=== PATIENT | female | born 1975 | race Caucasian/White ===

== ENCOUNTER 2016-12-04 14:52 | Inpatient (IN) | payer OTHER ==
[~2016-12-04] VITALS: Ht 167.6 cm; Wt 54.4 kg
[2016-12-04] MEDS ORDERED: MAGNESIUM HYDROXIDE 30 ML LIQUID UDC PO PRN (23:30)
[2016-12-04] MEDS ORDERED: THIAMINE HCL 200 MG/2 ML VIAL IM ONE (23:30)
[2016-12-04] MEDS ORDERED: MIRALAX 17 GM POWD.PACK PO PRN (23:30)
[2016-12-04] MEDS ORDERED: LORAZEPAM 2 MG/1 ML VIAL IM PRN (23:30)
[2016-12-04] MEDS ORDERED: ACETAMINOPHEN 325 MG TABLET PO PRN (23:30)
[2016-12-04] MEDS ORDERED: MAG HYDROX/AL HYDROX/SIMETH 30 ML LIQUID UDC PO PRN (23:30)
[2016-12-04] MEDS ORDERED: DICYCLOMINE HCL 20 MG TABLET PO PRN (23:30)
[2016-12-04] MEDS ORDERED: LOPERAMIDE HCL 2 MG CAPSULE PO PRN ×2 (23:30)
[2016-12-04] MEDS ORDERED: LORAZEPAM 1 MG TABLET PO PRN ×2 (23:30)
[2016-12-05] MEDS ORDERED: IV NS 1000 ML 1,000 ML IV PRN
[2016-12-05] MEDS ORDERED: ONDANSETRON 4 MG/2 ML VIAL IV PRN
[2016-12-05 00:18] VITALS: BP 112/79
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
[2016-12-05] MEDS: IBUPROFEN 400 MG TABLET PO PRN (00:43)
--- NOTE | 2016-12-05 00:43 | NUR ---
VITAMIN B1 INJ/PRN ATIVAN/MOTRIN ADMINISTRATION PATIENT GIVEN B1 INJ ORDERED. PATIENT ANXIOUS, AGITATED, IRRITABLE, TREMULOUS AND SWEATING. CIWA 5 . PRN ATIVAN GIVEN AND MOTRIN GIVEN FOR BACK PAIN 04/18. WILL MONITOR FOR EFFECTIVENESS
[2016-12-05] MEDS ORDERED: LORAZEPAM 1 MG TABLET ONE (00:46)
[2016-12-05 00:51] LABS: *URINE HCG, QUAL NEGATIVE (NEGATIVE)
[2016-12-05] MEDS ORDERED: IBUPROFEN 400 MG TABLET ONE (00:51)
[2016-12-05 00:54] LABS: *AMPHETAMINE, URINE NEGATIVE (NEGATIVE); *BARBITURATE, URINE NEGATIVE (NEGATIVE); *CANNABINOID, URINE NEGATIVE (NEGATIVE); *COCCAINE, URINE NEGATIVE (NEGATIVE); *OPIATE, URINE NEGATIVE (NEGATIVE); *PHENCYCLIDINE SCREEN,URINE NEGATIVE (NEGATIVE)
[2016-12-05] MEDS ORDERED: diphenhydrAMINE 50 MG CAPSULE ONE (01:29)
--- NOTE | 2016-12-05 01:43 | NUR ---
PRN MEDS RE-ASSESSMENT PATIENT'S STATES LESS ANXIOUS, ATIVAN HELPFUL . CIWA 6. PATIENT CALM. MOTRIN HELPFUL AND EFFECTIVE FOR HER BACK PAIN. WILL CONTINUE TO MONITOR.
[2016-12-05] MEDS: diphenhydrAMINE 50 MG CAPSULE PO PRN ×2 (02:03→21:18)
--- NOTE | 2016-12-05 02:03 | NUR ---
PRN BENADRYL ADMINISTRATION PATIENT FOR SLEEP AID. PRN BENADRYL GIVEN. WILL MONITOR FOR EFFECTIVENESS
[2016-12-05 02:24] LABS: ALBUMIN 4.6 g/dL (3.4-5.0); BILIRUBIN,TOTAL 0.4 mg/dL (0.2-1.0); CALCIUM 8.6 mg/dL (8.5-10.1); CREATININE 0.8 mg/dL (0.6-1.3); TOTAL PROTEIN, SERUM 8.1 g/dL (6.4-8.2)
[2016-12-05 02:34] LABS: THYROID STIMULATING HORMONE 2.665 mIU/mL (0.358-3.740)
[2016-12-05 02:37] LABS: HIV-1 p24 ANTIGEN NON REACTIVE (NONREACTIVE); HIV-1/2 ANTIBODY NON REACTIVE (NONREACTIVE)
[2016-12-05 02:43] LABS: HEMOGLOBIN 15.6 g/dL (12.0-16.0); MEAN CORPUSCULAR HEMOGLOBIN 32.2 uug (27.0-31.0); WHITE BLOOD COUNT (AUTO) 4.3 K/uL (4.0-11.2)
[2016-12-05 02:45] LABS: BASOPHILS % (AUTO) 0.4 % (0.0-2.0); EOSINOPHILS # (AUTO) 0.1 K/uL (0.0-0.7); EOSINOPHILS % (AUTO) 1.9 % (0.0-7.0); HEMATOCRIT 46.4 % (37.0-47.0); LYMPHOCYTES # (AUTO) 1.6 K/uL (0.8-4.8); LYMPHOCYTES % (AUTO) 38.1 % (20.5-51.5); MEAN CORPUSCULAR HGB CONC 34 g/dL (32.0-37.0); MONOCYTES # (AUTO) 0.2 K/uL (0.1-1.30); MONOCYTES % (AUTO) 5.5 % (0.0-11.0); NEUTROPHILS # (AUTO) 2.4 K/uL (1.8-8.9); NEUTROPHILS % (AUTO) 54.1 % (38.5-71.5); PLATELET COUNT (AUTO) 181 K/uL (150-450); RED BLOOD CELL COUNT(AUTO) 4.83 MIL/uL (4.20-5.40)
--- NOTE | 2016-12-05 03:30 | NUR ---
PRElla SIU RE-ASSESSMENT PATIENT IN BED WITH EYES CLOSED. RESPIRATION EVEN AND UNLABORED. NO S/S OF DISTRESS. SAFETY MEASURES IN PLACE. CALL LIGHT IN REACH. WILL CONTINUE TO MONITOR.
[2016-12-05 04:00] VITALS: BP 97/66
--- NOTE | 2016-12-05 07:20 | NUR ---
Start of Shift Report from night nurse: pt is 41 y.o female new admission last night here for Etoh r/t wine and beers; PRN Ativan 2mg given last night with first CIWA 15 with PRN Motrin and Benadryl, 5 day Ativan taper ordered to start today during my shift. Pt HHx: or ER visit last night with severe intoxication so MRSA done last night, no seizures, multiple relapses. Pt is a full code, allergic to peanut and PCN, Vegan/regular diet, fall and seizure precautions orded. V/S stable. Skin is intact. Endorse elevated liver panel regimen with Dr. Reza aware. Skin is intact. Last CIWA 15. Pt is asleep in room. WIll cont. to monitor the pt.
--- NOTE | 2016-12-05 07:25 | NUR ---
END OF SHIFT NOTE PATIENT IS A 41 YEAR OLD FEMALE WHO PRESENTS TO [facility] FOR SUPERVISED WITHDRAWAL FROM ETOH DEPENDENCE.BODY CHECK DONE . SKIN INTACT. LUNGS CLEAR AND BOWEL SOUNDS ACTIVE ON ALL QUADRANT. RESPIRATION EVEN AND UNLABORED . ABDOMEN SOFT AND NON-DISTENDED . PATIENT ALLERGIC TO PENICILLIN AND PEANUT. PATIENT REQUESTED TO BE FULL CODE AND ON VEGAN DIET. PATIENT DENIES PAST MEDICAL HISTORY. NO SEIZURE HISTORY. PATIENT'S DRUG OF CHOICE ARE FF:1. ETOH (BEER AND WHITE WINE) -STARTED DRINKING SINCE 11 YEARS OLD. FOR A WEEK, PATIENT DRINKS 10-12 GLASSES OF WHITE WINE BEGINNING OF THE WEEK THEN 10 BOTTLES OF BEER FOR THE LAST 4 DAYS . LAST DRINK WAS 6 BEERS ON 12/04/16 AT 4 PM. PATIENT WAS PLACED ON 5 DAYS ATIVAN TAPER TO START TODAY. PATIENT DENIES SI/HI. PATIENT PATIENT WAS PLACED ON FALL/SEIZURE PRECAUTION. PATIENT WAS GIVEN ATIVAN PRN FOR CIWA 15 DURING ADMISSION, B1 INJECTION ON LEFT DELTOID, MOTRIN FOR BACK PAIN AND BENADRYL FOR SLEEP. LAST CIWA 2. SAFETY MEASURES IN PLACE. CALL LIGHT IN REACH. WILL CONTINUE TO MONITOR. PATIENT SLEPT 3 HOURS. FLUID INTAKE OF 500 ML. VOIDED X 1 AND NO BM.
[2016-12-05 08:00] VITALS: BP 101/65
[2016-12-05] MEDS ORDERED: PANTOPRAZOLE SODIUM 40 MG VIAL IV SCH (09:00)
[2016-12-05] MEDS ORDERED: TUBERCULIN,PURIF.PROT.DERIV. 5 TU/0.1 ML TEST ID ONE (09:00)
[2016-12-05] MEDS: ONDANSETRON ODT 4 MG TAB.RAPDIS SL PRN (09:15)
[2016-12-05] MEDS: LORAZEPAM 1 MG TABLET PO SCH ×4 (09:15→21:18)
[2016-12-05] MEDS: FOLIC ACID 1 MG TABLET PO SCH (09:23)
[2016-12-05] MEDS: MULTIVITAMINS,THERAPEUTIC TABLET PO SCH (09:23)
[2016-12-05] MEDS: THIAMINE HCL 100 MG TABLET PO SCH (09:23)
--- NOTE | 2016-12-05 09:30 | NUR ---
PRN Medication Administration Pt is in room c/o intermittent nausea; PRN Zofran 4mg SL given. Will reassess in 1H.
--- NOTE | 2016-12-05 10:30 | NUR ---
Reassessment Pt denies nausea before going to group and denies nausea; Zofran is effective. Will cont. to monitor the pt.
[2016-12-05 12:00] VITALS: BP 133/55
[2016-12-05] MEDS: PANTOPRAZOLE SODIUM 40 MG TABLET.DR PO SCH (12:06)
[2016-12-05] MEDS: PROMETHAZINE HCL 25 MG/1 ML VIAL IM PRN ×2 (12:12→17:02)
--- NOTE | 2016-12-05 12:30 | NUR ---
PRN Medication Administration Pt c/o recurrent nausea; PRN Promethazine 25mg IM given as ordered. Will reassess in 1H.
--- NOTE | 2016-12-05 13:30 | NUR ---
Reassessment Pt denies nausea; Promethazine is effective. Will cont. to monitor the pt.
[2016-12-05 16:00] VITALS: BP 117/85
--- NOTE | 2016-12-05 17:05 | NUR ---
PRN Medication Administration Pt c/o intermittent nausea; PRN Promethazine 25mg IM given as ordered. Will reassess in 1H.
--- NOTE | 2016-12-05 17:30 | NUR ---
Reassessment Pt denies Nausea before going to dinner; promethazine is effective. Will cont. to monitor the pt.
--- NOTE | 2016-12-05 19:35 | NUR ---
End of Shift Report to night nurse with update: pt is 41 y.o female new admission last night here for Etoh r/t wine and beers; PRN Ativan 2mg given last night with first CIWA 15 with PRN Motrin and Benadryl, 5 day Ativan taper ordered to start today during my shift. Pt HHx: or ER visit last night with severe intoxication so MRSA done last night, no seizures, multiple relapses. Pt is a full code, allergic to peanut and PCN, Vegan/regular diet, fall and seizure precautions ordered. V/S stable. Skin is intact. #22g SL in Left FA with scheduled order for NS at 125 cc/H with only 200cc given since pt is out to group and activities so endorsed to night nurse. Skin is intact. Pt c/o intermittent nausea with PRN Zofran given once and Promethazine IM given twice and is effective. Last CIWA 10.
[2016-12-05 20:00] VITALS: BP 116/85
--- NOTE | 2016-12-05 20:00 | NUR ---
START OF SHIFT NOTE PATIENT IS A 41 YEAR OLD FEMALE, ADMITTED FOR ETOH DEPENDENCE. PATIENT IS FULL CODE , VEGAN / REGULAR DIET AND ALLERGIC TO PENICILLIN AND PEANUT.PATIENT IS ON 1ST DAY OF HER 5 DAY ATIVAN TAPER. PATIENT WAS GIVEN PHENERGAN IM X 2 AND ZOFRAN SL FOR INTERMITTENT NAUSEA. LAST CIWA 10. PATIENT IS ON IV SODIUM CHLORIDE 0.9 % AT 125 MLS/HR ON LEFT FOREARM #22 G. NO INFILTRATE. SKIN INTACT. PATIENT REPORTS ANXIETY, SWEATING , TREMORS, NO N/V , PATIENT ATTENDED GROUPS. SHE STATES HER APPETITE IS GETTING BACK NOW. ENCOURAGE FLUIDS. ON FALL/SEIZURE PRECAUTION . SAFETY MEASURES IN PLACE. CALL LIGHT IN REACH. WILL CONTINUE TO MONITOR.
--- NOTE | 2016-12-05 21:18 | NUR ---
PRN BENADRYL ADMINISTRATION PATIENT REQUESTS FOR SLEEP AID. PRN BENADRYL GIVEN . WILL MONITOR FOR EFFECTIVENESS.
[2016-12-06] VITALS: BP 106/76
--- NOTE | 2016-12-06 | NUR ---
PRN BENADRYL RE-ASSESSMENT PATIENT STATES SHE FELL ASLEEP FOR FOR HOURS ONLY AND STILL UNABLE TO STAY ASLEEP. BENADRYL MILDLY EFFECTIVE
[2016-12-06] MEDS: HYDROXYZINE PAMOATE 25 MG CAPSULE PO PRN ×2 (00:07→23:44)
--- NOTE | 2016-12-06 00:07 | NUR ---
PRN VISTARIL/BACLOFEN ADMINISTRATION PATIENTS C/O ANXIETY AND BACK PAIN 04/18. PRN VISTARIL AND BACLOFEN GIVEN. WILL MONITOR FOR EFFECTIVENESS
[2016-12-06] MEDS: BACLOFEN 20 MG TABLET PO PRN ×2 (00:08→17:15)
--- NOTE | 2016-12-06 01:07 | NUR ---
PRN VISTARIL/BACLOFEN RE-ASSESSMENT PATIENT IN BED WITH EYES CLOSED. COMFORTABLE AND NO FACIAL GRIMACING NOTED. WILL CONTINUE TO MONITOR.
[2016-12-06 04:00] VITALS: BP 99/60
[2016-12-06] MEDS: PANTOPRAZOLE SODIUM 40 MG TABLET.DR PO SCH (07:01)
--- NOTE | 2016-12-06 07:35 | NUR ---
END OF SHIFT NOTE PATIENT IS A 41 YEAR OLD FEMALE, ADMITTED FOR ETOH DEPENDENCE. PATIENT IS FULL CODE , VEGAN DIET AND ALLERGIC TO PENICILLIN AND PEANUT. PATIENT DRINKS FOR A WEEK 10-12 GLASSES OF WHITE WINE AND 10 BOTTLES OF BEER . PATIENT IS ON 1ST DAY OF HER 5 DAY ATIVAN TAPER, TOLERATED. NO ADVERSE REACTION . PATIENT WAS ON IV SODIUM CHLORIDE 0.9 % AT 125 MLS/HR ON LEFT FOREARM #22 G, COMPLETED AND DISCONTINUE. HEP LOCK IN PLACE. NO INFILTRATE. SKIN INTACT. PATIENT REPORTS ANXIETY, SWEATING , TREMORS, NO /V , PATIENT ATTENDED GROUPS. SHE STATES HER APPETITE IS GETTING BACK NOW. ENCOURAGE FLUIDS. PATIENT WAS GIVE PRN BENADRYL FOR SLEEP , VISTARIL AND BACLOFEN DURING SHIFT . PATIENT COMPLIANT WITH MEDICATION AND TREATMENT PLAN. ON FALL/SEIZURE PRECAUTION . WILL CONTINUE TO MONITOR. SLEPT 8 HOURS. FLUID INTAKE 1,500 ML. VOIDED X 1. NO BM. LAST CIWA 1.
--- NOTE | 2016-12-06 07:36 | NUR ---
Start of Shift Notes: Received patient in her room. Alert, awake and oriented x 4. Verbally responsive. Able to make needs known. Respirations even and unlabored. No SOB noted. Skin warm and dry to touch. Abdomen soft and non-distended with (+) BS in all 4 quadrants. No complains of N/V/D or constipation noted. No complains of abdominal discomfort noted. Bladder non-distended. No complains of dysuria noted. Ambulatory ad allan with steady gait. Patient is a 41 year old male admitted for ETOH dependence who was placed on a 5-day Ativan taper as ordered. No adverse reactions noted. Denies any past medical hx. On fall and seizure precautions. Allergic to PCN and peanut. FULL CODE. Regular diet. Educated patient on her current plan of care for the day and her medication regimen. Encouraged oral fluid intake and encouraged group participation to learn new skills to prevent relapse. Will continue to monitor closely.
[2016-12-06 08:00] VITALS: BP 111/78
[2016-12-06] MEDS: THIAMINE HCL 100 MG TABLET PO SCH (08:08)
[2016-12-06] MEDS: FOLIC ACID 1 MG TABLET PO SCH (08:08)
[2016-12-06] MEDS: MULTIVITAMINS,THERAPEUTIC TABLET PO SCH (08:08)
[2016-12-06] MEDS: LORAZEPAM 1 MG TABLET PO SCH ×3 (08:09→21:20)
[2016-12-06] MEDS ORDERED: SUMATRIPTAN SUCCINATE 50 MG TABLET PO PRN (10:30)
[2016-12-06] MEDS: ASPIRIN/ACETAMINOPHEN/CAFFEINE TABLET PO PRN ×2 (10:40→21:19)
--- NOTE | 2016-12-06 10:41 | NUR ---
Excedrin ES 1 tab PO given: Patient noted with complain of 5/10 migraine headache. Non-pharmacological interventions provided but ineffective. Medicated patient with Excedrin ES 1 tab as ordered. Will monitor for effectiveness.
--- NOTE | 2016-12-06 11:40 | NUR ---
Re-assessment: Per patient, PRN Excedrin was effective in relieving headache.
[2016-12-06 12:00] VITALS: BP 113/83
--- NOTE | 2016-12-06 13:00 | NUR ---
IV access site DC'd: Obtained order from MD to D/C IV. IV site to left forearm discontinued. Immediately applied pressure to site x 2 minutes. No bleeding noted. No s.s of infiltration noted.
[2016-12-06] MEDS: GABAPENTIN 300 MG CAPSULE PO SCH ×2 (14:30→21:20)
[2016-12-06] MEDS ORDERED: BACLOFEN 10 MG TABLET PO SCH (15:00)
[2016-12-06 16:00] VITALS: BP 124/88
[2016-12-06] MEDS: ONDANSETRON ODT 4 MG TAB.RAPDIS SL PRN (17:15)
--- NOTE | 2016-12-06 17:16 | NUR ---
Baclofen 20 mg PO and Zofran 4 mg ODT given: Patient complained of 5/10 back pain related to muscle spasms. Also noted with complains of nausea. Medicated patient with Baclofen 20 mg PO and Zofran 4 mg ODT as ordered. Will monitor for effectiveness.
--- NOTE | 2016-12-06 18:16 | NUR ---
Re-assessment: Per patient, PRN Baclofen and Zofran were effective in reducing patient's muscle pains and nausea. Will continue to monitor closely.
--- NOTE | 2016-12-06 18:35 | NUR ---
End of Shift Notes: Patient is a 41 year old male admitted on 12/04/2016 for ETOH dependence who was placed on a 5-day Ativan taper as ordered. No adverse reactions noted. Denies any past medical hx. FULL CODE. Vegan diet. Allergic to PRN and peanut. Prior to admission, patient was using 10 to 12 glasses of white wine and 10 bottles of beer daily. VS monitored q 4 hours. No significant abnormalities noted. Initial CIWA 7, - presented with mild nausea, tremors felt, anxiety, agitation, nervousness, and sweating. Last CIWA 4. Zofran 4 mg and Baclofen were given at 1728 due to nausea and back pain with help after 1 hour. Per patient, Ativan has been helping her with her withdrawal symptoms. Patient participated in group and therapy sessions. Safety precautions in place. All needs met and attended. Will continue to monitor closely.
[2016-12-06] MEDS: CLONIDINE HCL 0.1 MG TABLET PO PRN (18:47)
--- NOTE | 2016-12-06 18:48 | NUR ---
Tylenol 650 mg PO and Clonidine 0.1mg PO given: Patient noted with complain of 4/10 headache, chills, anxiety, sweats and "shakes." Medicated patient with Clonidine 0.1mg PO and Tylenol 650 mg PO given as ordered. Will monitor for effectiveness.
--- NOTE | 2016-12-06 19:30 | NUR ---
START OF SHIFT NOTE Received report from day shift nurse. Pt is 41 y o female, admitted on 12/04/16 for ETOH dependence (10 bottles of beer daily for 4 days before admission). Pt placed on 5 day Ativan started 12/05/16. Pt in room, aaox4. Pt reports mild anxiety, sweats, intermittent nausea, per pt at this time :very mild", headache 5/10. Skin intact, noted mild sweats over face. Lung sounds clear, heart rate regular. Bowel sounds active x 4. Pt denies urinary difficulties. Per day shift report, pt received Tylenol and Clonidine prn at 1845, pt still c/o anxiety and headache. Pt is full code, vegan diet, allergic to PCN and peanuts. Pt is on fall and seizure precautions. Side rails up x 2, call light within reach, bed locked in lowest position. Will continue with plan of care
[2016-12-06 20:00] VITALS: BP 115/81
[2016-12-06] MEDS: TRAZODONE 50 MG TABLET PO SCH (21:20)
--- NOTE | 2016-12-06 21:22 | NUR ---
PRN EXCEDRIN Excedrin prn PO given for headache rated as 5/10. Fall and seizure precautions in place. Will continue to monitor
--- NOTE | 2016-12-06 22:00 | NUR ---
reassessment Pt states headache decreased to 2/10 discomfort and tolerable now.
--- NOTE | 2016-12-06 23:44 | NUR ---
prn vistaril Pt c/o increasing anxiety, CIWA =4. Administered Vistaril 25 mg PO prn. Safety precautions in place.
[2016-12-07] VITALS: BP 110/69
--- NOTE | 2016-12-07 00:35 | NUR ---
REASSESSMENT Pt resting with eyes closed. RR unlabored. Will continue to monitor
[2016-12-07 03:06] LABS: HCV AB <0.1 s/co ratio (0.0-0.9); HEPATITIS B CORE AB, IgM Negative (Negative); HEPATITIS B SURFACE AG Negative (Negative)
--- NOTE | 2016-12-07 04:00 | NUR ---
VS, CIWA Pt refused VS and CIWA assessment, state she wants to sleep and not to be bothered. Pt asleep, RR even and unlabored at 16 breaths per minute. Side rails up x 2, call light within reach, bed locked in lowest position. Will continue to monitor Addendum: 12/07/16 at 0544 by ANJUM REDDY RN Amended: Links added.
--- NOTE | 2016-12-07 04:00 | NUR ---
PRN VISTARIL Pt c/o increasing anxiety, CIWA =4. Administered Vistaril 25 mg PO prn. Safety precautions in place. Addendum: 12/07/16 at 0552 by ANJUM REDDY RN WRONG TIME. INTENDED TO BE POSTED AT 8575
--- NOTE | 2016-12-07 07:30 | NUR ---
START OF SHIFT NOTE: Received report from rn shift mgr nurse. Pt is 41 y o female, admitted on 12/04/16 for ETOH dependence. Pt is on a 5 day Ativan taper. Tolerating well. Pt is alert and oriented X4. Color good, skin warm and dry. Respirations even and unlabored. Safety precautions observed. Call light within reach. Will continue to monitor.
--- NOTE | 2016-12-07 07:49 | NUR ---
END OF SHIFT NOTE Pt is 41 y o female, admitted on 12/04/16 for ETOH dependence (10 bottles of beer daily for 4 days before admission). Pt is on day 3 of 5 day Ativan started 12/05/16. Pt was complant and cooperative, VSS. Withdrawal s/s included anxiety, headache, sweats. PRN Excedrin was given at 2122, was effective. Pt received prn Vistaril at 234 for anxiety, was effective. Last CIWA 4 at 0000. Pt slept for 5 hrs. Pt is full code, vegan diet, allergic to PCN and peanuts. Pt is on fall and seizure precautions. Report endorsed to day shift nurse.
[2016-12-07] MEDS: PANTOPRAZOLE SODIUM 40 MG TABLET.DR PO SCH (07:51)
[2016-12-07 08:00] VITALS: BP 112/66
[2016-12-07 09:03] LABS: ALBUMIN 4.1 g/dL (3.4-5.0); BILIRUBIN,DIRECT 0.2 mg/dL (0.0-0.2); BILIRUBIN,TOTAL 0.7 mg/dL (0.2-1.0); CALCIUM 9.1 mg/dL (8.5-10.1); CREATININE 0.8 mg/dL (0.6-1.3); MAGNESIUM 2.1 mg/dL (1.8-2.4); POTASSIUM 3.9 mmol/L (3.5-5.1); TOTAL PROTEIN, SERUM 7.3 g/dL (6.4-8.2)
[2016-12-07] MEDS: GABAPENTIN 300 MG CAPSULE PO SCH ×3 (09:19→20:58)
[2016-12-07] MEDS: LORAZEPAM 1 MG TABLET PO SCH ×4 (09:19→20:58)
[2016-12-07] MEDS: THIAMINE HCL 100 MG TABLET PO SCH (09:19)
[2016-12-07] MEDS: FOLIC ACID 1 MG TABLET PO SCH (09:19)
[2016-12-07] MEDS: MULTIVITAMINS,THERAPEUTIC TABLET PO SCH (09:19)
[2016-12-07 12:30] VITALS: BP 112/68
--- NOTE | 2016-12-07 13:00 | NUR ---
VSS CIWA 5 Pt c/o nausea. Zofran 4mg sl prn given
[2016-12-07] MEDS: ONDANSETRON ODT 4 MG TAB.RAPDIS SL PRN ×2 (13:38→20:50)
--- NOTE | 2016-12-07 13:45 | NUR ---
Pt feels improved after Zofran 4mg sl prn
--- NOTE | 2016-12-07 17:21 | NUR ---
LETY VIEIRA 8 Pt c/o chills, anxiety Addendum: 12/07/16 at 1754 by SAVANA ABRAHAM RN DARIEL 13 Dr. Duke notified. Additional 1 mg Ativan po X1 given and Baclofen 20mg po prn and Clonidine 0.1 mg po prn given
[2016-12-07] MEDS: BACLOFEN 20 MG TABLET PO PRN (17:44)
[2016-12-07] MEDS: CLONIDINE HCL 0.1 MG TABLET PO PRN (17:46)
[2016-12-07] MEDS ORDERED: LORAZEPAM 1 MG TABLET PO ONE (18:00)
[2016-12-07 18:04] VITALS: BP 112/62
--- NOTE | 2016-12-07 18:20 | NUR ---
CIWA 9 after Ativan 1mg X1 po. Pt states "I feel better."
--- NOTE | 2016-12-07 18:45 | NUR ---
END OF SHIFT NOTE: Report given to it senior software engineer java nurse. Pt is 41 y o female, admitted on 12/04/16 for ETOH dependence. Pt is on a 5 day Ativan taper. Tolerating well. Pt is alert and oriented X4. Color good, skin warm and dry. Respirations even and unlabored. Pt received Zofran 4mg sl prn @ 1340. Vital signs have remained stable throughout shift. Last CIWA 13 @ 1700. Pt received Baclofen 20mg po prn, Clonidine 0.1 mg po prn and Ativan 1mg X1. Safety precautions observed. Call light within reach.
--- NOTE | 2016-12-07 19:50 | NUR ---
START OF SHIFT NOTE Received report from day shift nurse. Pt is 41 y o female, admitted on 12/04/16 for ETOH dependence (pt reported drinking 10 bottles of beer daily for 4 days before admission). Pt is on 5 day Ativan started 12/05/16. Pt is full code, vegan diet, allergic to PCN and peanuts. Pt in room, aaox4. Pt reports moderate anxiety, sweats, stomach cramps, nausea. Offered Zofran prn but pr refused at this time. Skin intact, noted mild sweats over face. Lung sounds clear bilat, heart rate regular. Bowel sounds active x 4. Pt denies urinary difficulties. Pt is on fall and seizure precautions. Side rails up x 2, call light within reach, bed locked in lowest position. Will continue with plan of care
[2016-12-07 20:00] VITALS: BP 121/87
--- NOTE | 2016-12-07 20:52 | NUR ---
PRN ZOFRAN Pt reports nausea increased. Administered prn Zofran ODT 4 mg as ordered. Will continue to monitor
[2016-12-07] MEDS: TRAZODONE 50 MG TABLET PO SCH (20:58)
--- NOTE | 2016-12-07 21:45 | NUR ---
REASSESSMENT Pt states nausea has improved, Zofran was effective.
[2016-12-07] MEDS: HYDROXYZINE PAMOATE 25 MG CAPSULE PO PRN (23:51)
[2016-12-07] MEDS: IBUPROFEN 400 MG TABLET PO PRN (23:51)
--- NOTE | 2016-12-07 23:51 | NUR ---
PRN MOTRIN, VISTARIL Pt c/o increasing anxiety and lower back pain 01/16. BP 113/73, HR 62, RR 16. Administered Vistaril 25 mg PO prn and Motrin 400 mg PO prn as ordered. Warm compress o=to lower back for comfort. Side rails up x 2, call light within reach, bed locked in lowest position. Will continue to monitor
[2016-12-08] VITALS: BP 113/73
--- NOTE | 2016-12-08 00:30 | NUR ---
REASSESSMENT Pt sleeping soundly, RR unlabored. Side rails up x 2, call light within reach, bed in lowest position. Will continue to monitor
--- NOTE | 2016-12-08 04:10 | NUR ---
VS, , CIWA Pt refused VS and CIWA assessment, state she wants to sleep and not to be bothered. Pt asleep, RR even and unlabored at 15 breaths per minute. Side rails up x 2, call light within reach, bed locked in lowest position. Will continue to monitor Addendum: 12/08/16 at 0410 by ANJUM REDDY RN Amended: Links added.
[2016-12-08] MEDS: PANTOPRAZOLE SODIUM 40 MG TABLET.DR PO SCH (06:52)
--- NOTE | 2016-12-08 07:23 | NUR ---
END OF SHIFT NOTE Pt is 41 y o female, admitted on 12/04/16 for ETOH dependence (10 bottles of beer daily for 4 days before admission). Pt is on day 4 of 5 day Ativan started 12/05/16. VSS. Withdrawal s/s included anxiety, sweats, nausea. PRN Zofran was given at 2051, was effective. Pt received prn Vistaril and Motrin at 2351 for anxiety and lower back pain, was effective. Last CIWA 4 at 0000. Pt slept for 6 hrs. Pt is full code, vegan diet, allergic to PCN and peanuts. Pt is on fall and seizure precautions. Report endorsed to day shift nurse.
[2016-12-08 08:00] VITALS: BP 106/77
--- NOTE | 2016-12-08 08:00 | NUR ---
START OF SHIFT Pt 41 y/o female admitted for etoh dependence. Pt received in room sitting on bed awake writing on notepad. Pt alert and oriented to name, place, and time. Perrla. Skin warm and slightly moist to touch. Respirations even and unlabored. Bilateral hand tremors noted. It was reported that pt slept for 6 hours last night. Bed on lowest position with side rails x2 up for safety. Call light within reach. No distress noted.
[2016-12-08 08:55] LABS: ALBUMIN 4.2 g/dL (3.4-5.0); BILIRUBIN,DIRECT 0.2 mg/dL (0.0-0.2); BILIRUBIN,TOTAL 0.7 mg/dL (0.2-1.0); TOTAL PROTEIN, SERUM 7.5 g/dL (6.4-8.2)
[2016-12-08] MEDS: LORAZEPAM 1 MG TABLET PO SCH ×3 (09:05→20:24)
[2016-12-08] MEDS: FOLIC ACID 1 MG TABLET PO SCH (09:07)
[2016-12-08] MEDS: THIAMINE HCL 100 MG TABLET PO SCH (09:07)
[2016-12-08] MEDS: BACLOFEN 20 MG TABLET PO PRN ×2 (09:07→17:15)
[2016-12-08] MEDS: GABAPENTIN 300 MG CAPSULE PO SCH ×3 (09:07→20:24)
[2016-12-08] MEDS: MULTIVITAMINS,THERAPEUTIC TABLET PO SCH (09:07)
[2016-12-08] MEDS ORDERED: ONDANSETRON 4 MG/2 ML VIAL IM PRN (11:15)
[2016-12-08] MEDS ORDERED: IBUPROFEN 600 MG TABLET PO PRN ×2 (11:30→12:07)
[2016-12-08] MEDS ORDERED: IBUPROFEN 400 MG TABLET PO PRN (11:30)
[2016-12-08 12:00] VITALS: BP 115/73
[2016-12-08] MEDS: METHOCARBAMOL 750 MG TABLET PO PRN ×2 (12:13→20:24)
--- NOTE | 2016-12-08 12:13 | NUR ---
PRN Pt with with c/o pain , aches of body. Robaxin po prn per MD order given and tolerated well.
[2016-12-08] MEDS: ACETAMINOPHEN ES 500 MG TABLET PO SCH ×3 (12:14→17:15)
--- NOTE | 2016-12-08 12:15 | NUR ---
PRN Pt with c/o headache. Motrin po prn per MD order given and tolerated well.
--- NOTE | 2016-12-08 13:13 | NUR ---
ALTA KNOTT Pt observed in room sitting on bed writing on note pad.
--- NOTE | 2016-12-08 13:15 | NUR ---
ALTA KNOTT Pt observed in room writing on notepad.
[2016-12-08] MEDS: SCOPOLAMINE HYDROBROMIDE 1.5 MG PATCH TD SCH (13:25)
[2016-12-08 16:00] VITALS: BP 119/83
--- NOTE | 2016-12-08 18:34 | NUR ---
END OF SHIFT Pt 41 y/o female admitted for etoh dependence. Pt alert and oriented to name, place, and time. Perrla. Skin warm and slightly moist to touch. Respirations even and unlabored. Bilateral hand tremors noted. Pt observed mostly in dining room throughout the day. Pt did attend group activity. Pt medication compliant and tolerated well. No ASE noted. Pt was seen by Dr. Duke today. Bed on lowest position with side rails x2 up for safety. Call light within reach. No distress noted.
--- NOTE | 2016-12-08 19:15 | NUR ---
START OF SHIFT Received 41 year old female patient admitted on 12/04/16 for ETOH dependency. Pt is full code with allergy to peanuts and PCN. She denies any PMHx. She reports drinking 10-12 glasses of white wine at the beginning of the week and then 10 bottles of beer the last four days. She has been at this rate for 9 weeks. Last dose is 6 beers at 4 pm on 12/04/16. She denies hx of seizure. She is placed on 5 day Ativan taper and tolerating well. Per endorsement, pt received PRN Robaxin and Imitrex. Pt is alert and oriented x4, breathing is even and unlabored, pt safe with bed locked in lowest position, side rails up x2 and call light within reach. Will continue to monitor.
[2016-12-08 20:00] VITALS: BP 126/86
--- NOTE | 2016-12-08 20:24 | NUR ---
PRN ROBAXIN Pt complains of muscle aches 05/19. PRN Robaxin administered as ordered. Breathing even and unlabored, safety measures in place. Will continue to monitor effectiveness.
[2016-12-08] MEDS: TRAZODONE 50 MG TABLET PO SCH (20:25)
--- NOTE | 2016-12-08 21:24 | NUR ---
PRN ROBAXIN REASSESSMENT PRN medication effective. Pt reports decrease in muscle pain. Pt stated " I'm feeling a lot better." Breathing even and unlabored, safety measures in place, will continue to monitor.
[2016-12-08] MEDS ORDERED: SUMATRIPTAN SUCCINATE 50 MG TABLET PO PRN (22:30)
--- NOTE | 2016-12-08 23:58 | NUR ---
PRN VISTARIL Pt complains of anxiety. PRN Vistaril administered as ordered. Breathing even and unlabored, safety measures in place. Will continue to monitor effectiveness.
[2016-12-08] MEDS: HYDROXYZINE PAMOATE 25 MG CAPSULE PO PRN (23:59)
--- NOTE | 2016-12-09 | NUR ---
VITALS 0000 vitals refused by pt. Breathing even and unlabored, safety measures in place, will continue to monitor.
--- NOTE | 2016-12-09 00:58 | NUR ---
PRN VISTARIL REASSESSMENT PRN medication effective. Pt lying in bed with eyes closed noted to be asleep. Respirations 16, breathing even and unlabored, safety measures in place. Will continue to monitor.
--- NOTE | 2016-12-09 04:00 | NUR ---
VITALS 0400 vitals refused by pt at beginning of shift. Breathing even and unlabored, respirations 16, safety measures in place, will continue to monitor.
[2016-12-09] MEDS: PANTOPRAZOLE SODIUM 40 MG TABLET.DR PO SCH (06:49)
[2016-12-09] MEDS: METHOCARBAMOL 750 MG TABLET PO PRN ×2 (06:52→16:40)
--- NOTE | 2016-12-09 06:52 | NUR ---
ALTA CAMPO Pt complains of body aches 03/18. Breathing even and unlabored, safety measures in place. Will endorse to monitor effectiveness.
--- NOTE | 2016-12-09 07:11 | NUR ---
END OF SHIFT Pt is a 41 year old female patient admitted on 12/04/16 for ETOH dependency. Pt is full code with allergy to peanuts and PCN. She denies any PMHx. She denies hx of seizure. She is placed on 5 day Ativan taper and tolerating well. Pt received PRN Robaxin and Vistaril. She slept a total of 5 hrs, Intake: 1,100 mL, Void: x2, BM: 0. CIWA:4. Pt remains alert and oriented x4, breathing is even and unlabored, pt safe with bed locked in lowest position, side rails up x2 and call light within reach. Endorsed to oncoming shift.
[2016-12-09 08:00] VITALS: BP 103/71
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
--- NOTE | 2016-12-09 08:01 | NUR ---
Robaxin Reassessment: Pt reports that PRN Robaxin administered previous shift was only mildly effective. Pt requests that PRN Baclofen be administered with her 09:00 medications.
[2016-12-09] MEDS: FOLIC ACID 1 MG TABLET PO SCH (09:16)
[2016-12-09] MEDS: BACLOFEN 20 MG TABLET PO PRN ×3 (09:16→20:58)
[2016-12-09] MEDS: GABAPENTIN 300 MG CAPSULE PO SCH ×3 (09:16→20:57)
--- NOTE | 2016-12-09 09:16 | NUR ---
PRN Baclofen: Pt c/o myalgia and generalized muscle aches. Pt rates pain 8/10. Administered PRN Baclofen as ordered. Will continue to monitor.
[2016-12-09] MEDS: ACETAMINOPHEN ES 500 MG TABLET PO SCH ×3 (09:17→17:00)
[2016-12-09] MEDS: MULTIVITAMINS,THERAPEUTIC TABLET PO SCH (09:17)
[2016-12-09] MEDS: LORAZEPAM 1 MG TABLET PO SCH ×2 (09:17→20:58)
[2016-12-09] MEDS: THIAMINE HCL 100 MG TABLET PO SCH (09:17)
--- NOTE | 2016-12-09 10:15 | NUR ---
Reassessment: Pt reports that PRN Baclofen was effective. Will continue to monitor.
[2016-12-09 12:00] VITALS: BP 121/83
--- NOTE | 2016-12-09 13:44 | NUR ---
PRN Baclofen: Pt reports that generalized myalgia and pain has returned. Administered PRN Baclofen as ordered. Will continue to monitor.
--- NOTE | 2016-12-09 14:45 | NUR ---
Reassessment: Pt reports that PRN Baclofen was effective in reducing myalgia. Will continue to monitor.
[2016-12-09 16:00] VITALS: BP 114/80
--- NOTE | 2016-12-09 16:40 | NUR ---
PRN Robaxin: Pt c/o myalgia in lower back, neck, shoulders. Administered PRN Robaxin as ordered. Will continue to monitor.
--- NOTE | 2016-12-09 17:00 | NUR ---
17:00 Tylenol Refused: Pt states that the scheduled Tylenol ES is not effective in managing her pain. Pt refuses medication. Pt educated on risks/benefits. Will continue to monitor.
--- NOTE | 2016-12-09 17:40 | NUR ---
Reassessment: Pt states that PRN Robaxin was mildly effective. Will continue to monitor.
--- NOTE | 2016-12-09 19:15 | NUR ---
START OF SHIFT Received 41 year old female patient admitted on 12/04/16 for ETOH dependency. Pt is full code with allergy to peanuts and PCN. She denies any PMHx. She reports drinking 10-12 glasses of white wine at the beginning of the week and then 10 bottles of beer the last four days. She has been at this rate for 9 weeks. Last dose is 6 beers at 4 pm on 12/04/16. She denies hx of seizure. She is placed on 5 day Ativan taper and tolerating well. Per endorsement, pt received PRN Robaxin and Baclofen x2 and refused her 1700 dose of Tylenol. Pt is alert and oriented x4, breathing is even and unlabored, pt safe with bed locked in lowest position, side rails up x2 and call light within reach. Will continue to monitor.
--- NOTE | 2016-12-09 19:26 | NUR ---
END OF SHIFT NOTE: PT IS A 41YO FEMALE ADMITTED TO [facility] ON 12/04/16 FOR MEDICALLY SUPERVISED WITHDRAWAL FROM ETOH. PT REPORTS DRINKING 10-12 GLASSES OF WHITE WINE DAILY FOR A WEEK, THEN 10 BOTTLES OF BEER DAILY FOR THE 4 DAYS PRIOR TO ADMISSION. PT CONTINUES ON DAY 5 OF A 5-DAY ATIVAN TAPER. LAST CIWA=5 AT 16:00; ATIVAN TAPER EFFECTIVELY MANAGED S/S OF WITHDRAWAL, IN ADDITION TO PRN BACLOFEN X2 AND PRN ROBAXIN. PT IS ON VEGAN DIET. PT DENIES ANY PAST MED HX. PT REPORTS ALLERGY TO PCN AND PEANUTS AND IS A FULL CODE. PT CONSUMED 100% OF ALL MEALS, HAD INTAKE 2100ML, OUTPUT URINE X3 AND STOOL X. PT ENDORSED TO CLERK OPERATOR NURSE.
[2016-12-09 20:00] VITALS: BP 119/84
[2016-12-09] MEDS: TRAZODONE 50 MG TABLET PO SCH (20:57)
[2016-12-09] MEDS: CLONIDINE HCL 0.1 MG TABLET PO PRN (20:58)
--- NOTE | 2016-12-09 20:58 | NUR ---
PRN BACLOFEN/CLONIDINE Pt complains of muscle spasms and aches / and anxiety. CIWA:4. PRN Baclofen and Clonidine administered as ordered. Breathing even and unlabored, safety measures in place. Will continue to monitor effectiveness.
--- NOTE | 2016-12-09 21:58 | NUR ---
PRN BACLOFEN/CLONIDINE REASSESSMENT PRN medications effective. Pt reports decrease in muscle aches and noted to be less anxious. Breathing even and unlabored, safety measures in place. Will continue to monitor.
--- NOTE | 2016-12-10 | NUR ---
VITALS 0000 vitals refused by pt. Pt stated " no, I want to sleep." Pt lying in bed with eyes closed noted to be asleep. Breathing is even and unlabored, respirations 16. Pt safe with bed locked in lowest position, side rails up x2 and call light within reach. Will continue to monitor. Addendum: 12/10/16 at 0141 by MIGEL BEEBE RN Amended: Links added.
--- NOTE | 2016-12-10 04:00 | NUR ---
VITALS 0400 vitals refused by pt. Pt stated " no, I want to sleep." Pt lying in bed with eyes closed noted to be asleep. Breathing is even and unlabored, respirations 16. Pt safe with bed locked in lowest position, side rails up x2 and call light within reach. Will continue to monitor.
[2016-12-10] MEDS: BACLOFEN 20 MG TABLET PO PRN ×3 (06:47→20:44)
[2016-12-10] MEDS: PANTOPRAZOLE SODIUM 40 MG TABLET.DR PO SCH (06:47)
--- NOTE | 2016-12-10 06:47 | NUR ---
PRN BACLOFEN Pt complains of muscle spasms and aches 03/18. Pt observed with facial grimacing and noted to be rubbing back and neck. Pt stated " my muscles just really hurt." PRN Baclofen administered as ordered. Breathing even and unlabored, safety measures in place. Will endorse to monitor effectiveness.
--- NOTE | 2016-12-10 07:01 | NUR ---
END OF SHIFT Pt is a 41 year old female patient admitted on 12/04/16 for ETOH dependency. Pt is full code with allergy to peanuts and PCN. She denies any PMHx. She denies hx of seizure. She is placed on 5 day Ativan taper and tolerating well. Pt received Baclofen and Clonidine, PRN medications were effective. She slept a total of 6 hrs, Intake: 1091mL, Void: x1, BM: 0. CIWA:4. Pt remains alert and oriented x4, breathing is even and unlabored, pt safe with bed locked in lowest position, side rails up x2 and call light within reach. Will endorse to oncoming nurse.
--- NOTE | 2016-12-10 07:30 | NUR ---
START OF SHIFT Received report from assistant casino shift manager nurse. 41 year old female patient admitted on 12/04/16 for ETOH dependence. Pt is A/O x4. RR even and unlabored. Pt is full code, vegan diet and allergic to PCN and peanuts.Pt has completed 5 day Ativan taper and does not present with s/s of acute withdrawals at this time. PRN baclofen and Clonidine administered at night x2 and effective. Pt slept for 6 hours. Most recent CIWA 4. Skin remains warm, dry and intact. MD is aware of labs. All needs met at this time. Safety precautions are in place, will continue to monitor.
[2016-12-10 08:00] VITALS: BP 111/87
[2016-12-10] MEDS: ACETAMINOPHEN ES 500 MG TABLET PO SCH ×3 (09:00→17:00)
[2016-12-10] MEDS: GABAPENTIN 300 MG CAPSULE PO SCH ×3 (09:11→20:42)
[2016-12-10] MEDS: FOLIC ACID 1 MG TABLET PO SCH (09:11)
[2016-12-10] MEDS: MULTIVITAMINS,THERAPEUTIC TABLET PO SCH (09:11)
[2016-12-10] MEDS: THIAMINE HCL 100 MG TABLET PO SCH (09:12)
[2016-12-10] MEDS: METHOCARBAMOL 750 MG TABLET PO PRN ×2 (09:12→17:13)
--- NOTE | 2016-12-10 09:12 | NUR ---
PRN ROBAXIN Pt complains of 7/10 generalized body aches not relieved with nonpharmacological methods. PRN Robaxin administered as ordered. Pt refused ordered dose of Tylenol. Will reassess.
[2016-12-10 10:00] LABS: BILIRUBIN,DIRECT 0.2 mg/dL (0.0-0.2); BILIRUBIN,TOTAL 0.5 mg/dL (0.2-1.0)
[2016-12-10 10:12] LABS: TOTAL PROTEIN, SERUM 7.5 g/dL (6.4-8.2)
--- NOTE | 2016-12-10 10:30 | NUR ---
REASSESSMENT Pt reports Robaxin is effective and pain decreased to 3/10.
[2016-12-10 13:02] VITALS: BP 112/78
[2016-12-10] MEDS: HYDROXYZINE PAMOATE 25 MG CAPSULE PO PRN (14:18)
--- NOTE | 2016-12-10 14:23 | NUR ---
PRN BACLOFEN/HYDROXYZINE Patient complained of anxiety, PRN hydroxyzine po given. Pt. also complained of pain 03/18, PRN baclofen po given. Will reassess for effectiveness.
[2016-12-10 15:01] LABS: *AMPHETAMINE, URINE NEGATIVE (NEGATIVE); *BARBITURATE, URINE NEGATIVE (NEGATIVE); *CANNABINOID, URINE NEGATIVE (NEGATIVE); *COCCAINE, URINE NEGATIVE (NEGATIVE); *OPIATE, URINE NEGATIVE (NEGATIVE); *PHENCYCLIDINE SCREEN,URINE NEGATIVE (NEGATIVE)
--- NOTE | 2016-12-10 15:30 | NUR ---
REASSESSMENT Pt states medication was effective and reports decreased anxiety and pain.
--- NOTE | 2016-12-10 17:13 | NUR ---
PRN ROBAXIN Pt complains of 8/10 generalized golden aches. Robaxin 750mg administered as ordered.
[2016-12-10 17:15] VITALS: BP 105/72
--- NOTE | 2016-12-10 18:13 | NUR ---
REASSESMENT Patient reports pain decreased and is attending activities.
--- NOTE | 2016-12-10 18:47 | NUR ---
END OF SHIFT NOTE 41 year old female patient admitted on 12/04/16 for ETOH dependence. Pt is A/O x4. RR even and unlabored. Pt is full code, vegan diet and allergic to PCN and peanuts. Pt has completed 5 day Ativan taper and does not present with s/s of acute withdrawals at this time. PRN baclofen, Robaxin X2, and Vistaril administered, and effective. Most recent CIWA was 3. Patient refused scheduled dose of Tylenol. Patient has been medically cleared for discharge tomorrow, patient aware, urine has been collected. Patient attends group activities. All needs met at this time. Safety precautions are in place. warehouse shift supervisor nurse will continue to monitor.
[2016-12-10] MEDS ORDERED: PANT40TA2 PO (19:12)
[2016-12-10] MEDS ORDERED: TRAZ-144 PO (19:12)
[2016-12-10] MEDS ORDERED: Gabapentin PO (19:12)
[2016-12-10] MEDS ORDERED: DICY20TA28 PO (19:12)
[2016-12-10] MEDS ORDERED: HYDR-3895 PO (19:12)
[2016-12-10] MEDS ORDERED: Baclofen PO (19:12)
[2016-12-10] MEDS ORDERED: SUMA50TA PO (19:12)
[2016-12-10] MEDS ORDERED: CLON0.1T14 PO (19:12)
--- NOTE | 2016-12-10 19:30 | NUR ---
START OF SHIFT-- Pt is a 41 year old female patient admitted on 12/04/16 for ETOH dependence. Pt is A/O x4. Pt is full code, vegan diet and allergic to PCN and peanuts. Pt has completed 5 day Ativan taper and does not present with s/s of acute withdrawals at this time.Last CIWA was 3. Patient is scheduled for discharge tomorrow, patient aware, urine has been collected, UDS is negative. Patient is pleasant and cooperative. All needs met at this time. Safety precautions are in place,call light within reach ;will continue to monitor.
[2016-12-10 20:00] VITALS: BP 119/78
[2016-12-10] MEDS: DOCUSATE SODIUM 100 MG CAPSULE PO SCH (20:42)
[2016-12-10] MEDS: TRAZODONE 50 MG TABLET PO SCH (20:42)
[2016-12-10] MEDS: CLONIDINE HCL 0.1 MG TABLET PO PRN (20:43)
--- NOTE | 2016-12-10 20:45 | NUR ---
PRN MEDS--- PRN BACLOFEN AND CLONIDINE GIVEN ORDERED FOR C/O MUSCLES SPASMS AND CHILLS PER PT REQUEST.WILL CONTINUE TO MONITOR FOR EFFECTIVENESS.
[2016-12-10] MEDS ORDERED: SENNOSIDES 1 TABLET PO SCH (21:00)
--- NOTE | 2016-12-10 21:45 | NUR ---
PRN MEDS F/U-- PRN MEDS ARE EFFECTIVE.PT VERBALIZES FEELING BETTER.WILL CONTINUE TO MONITOR.
--- NOTE | 2016-12-11 | NUR ---
V/S AND CIWA REFUSED-- PT OBSERVED SLEEPING,REFUSED V/S;BREATHING IS EVEN AND NON LABORED.NO S/S OF DISTRESS NOTED.WILL CONTINUE TO MONITOR.
--- NOTE | 2016-12-11 04:00 | NUR ---
V/S AND CIWA REFUSED-- PT OBSERVED SLEEPING,REFUSED V/S;BREATHING IS EVEN AND NON LABORED.NO S/S OF DISTRESS NOTED.WILL CONTINUE TO MONITOR.
[2016-12-11] MEDS: METHOCARBAMOL 750 MG TABLET PO PRN (04:05)
--- NOTE | 2016-12-11 06:44 | NUR ---
END OF SHIFT NOTE--- ----- Pt is a 41 year old female patient admitted on 12/04/16 for ETOH dependence. Pt is A/O x4. Pt is full code, vegan diet and allergic to PCN and peanuts. Pt has completed 5 day Ativan taper and does not present with s/s of acute withdrawals at this time.Last CIWA was 2. Patient is scheduled for discharge today ; UDS is negative. Patient was given PRN meds Clonidine and Baclofen.She slept 6 hrs last night; fluid intake was 1151 mls; urine x 2 . All needs met at this time. Safety precautions are in place,call light within reach ;will continue to monitor.
[2016-12-11] MEDS: PANTOPRAZOLE SODIUM 40 MG TABLET.DR PO SCH (07:00)
--- NOTE | 2016-12-11 07:38 | NUR ---
START OF SHIFT NOTE: Received report from second shift supervisor nurse. Pt is a 41 year old female patient admitted on 12/04/16 for ETOH dependence. Pt is alert and oriented X4. Color good, skin warm and dry. Respirations even and unlabored. Safety precautions observed. Call light within reach.
[2016-12-11 08:15] VITALS: BP 112/68
[2016-12-11] MEDS: GABAPENTIN 300 MG CAPSULE PO SCH (08:38)
[2016-12-11] MEDS: DOCUSATE SODIUM 100 MG CAPSULE PO SCH (08:38)
[2016-12-11 08:39] VITALS: BP 112/60
[2016-12-11] MEDS: THIAMINE HCL 100 MG TABLET PO SCH (08:39)
[2016-12-11] MEDS: BACLOFEN 20 MG TABLET PO PRN (08:39)
[2016-12-11] MEDS: FOLIC ACID 1 MG TABLET PO SCH (08:39)
[2016-12-11] MEDS: MULTIVITAMINS,THERAPEUTIC TABLET PO SCH (08:39)
[2016-12-11] MEDS: ACETAMINOPHEN ES 500 MG TABLET PO SCH (08:39)
[2016-12-11] MEDS: CLONIDINE HCL 0.1 MG TABLET PO PRN (08:39)
[2016-12-11] MEDS: SCOPOLAMINE HYDROBROMIDE 1.5 MG PATCH TD SCH (08:41)
--- NOTE | 2016-12-11 08:47 | NUR ---
VSS Discharge papers signed. No home meds
--- NOTE | 2016-12-11 09:33 | NUR ---
Pt discharged in stable condition with all valuables and belongings. No home meds. Pt denies HI/SI. To [facility] private car.
== END 2016-12-11 09:29 | disposition other institution (70) | DRG 895 ==
LOC: SRC 23:14
PROVIDERS: ADMIT Internal Medicine; ATTEND Internal Medicine
PROC: HZ2ZZZZ Detoxification Services for Substance Abuse Treatment (ICD-10-PCS; principal; 2016-12-04)
PROC: HZ31ZZZ Individual Counseling for Substance Abuse Treatment, Behavioral (ICD-10-PCS; 2016-12-05)
PROC: HZ41ZZZ Group Counseling for Substance Abuse Treatment, Behavioral (ICD-10-PCS; 2016-12-06)
DX: F10.230 Alcohol dependence with withdrawal, uncomplicated (principal); E87.3 Alkalosis; F10.220 Alcohol dependence with intoxication, uncomplicated; K70.10 Alcoholic hepatitis without ascites; Y90.9 Presence of alcohol in blood, level not specified; Z82.49 Family history of ischemic heart disease and other diseases of the circulatory system; Z81.8 Family history of other mental and behavioral disorders; Z81.1 Family history of alcohol abuse and dependence; Z88.0 Allergy status to penicillin; Z91.010 Allergy to peanuts; F17.210 Nicotine dependence, cigarettes, uncomplicated; F41.9 Anxiety disorder, unspecified; F50.9 Eating disorder, unspecified; E86.0 Dehydration; E86.1 Hypovolemia; G47.00 Insomnia, unspecified; F11.90 Opioid use, unspecified, uncomplicated; F14.90 Cocaine use, unspecified, uncomplicated
CPT/HCPCS: 36415; 70030-TC; 80307; 83690; 83735; 84443; 84703; 85025; 86580; 86592; 86705; 86803; 87340; 87806; A4663; G6040-TC; J2550; J3411; J7030; Q0162; Q0163

== ENCOUNTER 2016-12-04 18:53 | Emergency (ER) | payer OTHER ==
[~2016-12-04] VITALS: Ht 167.6 cm; Wt 54.4 kg
--- NOTE | 2016-12-04 19:37 | NUR ---
PT B/B [facility] STAFF FOR ALC INTOXICATION. PT AROUSABLE BUT UNABLE TO ANSWER MOST QUESTIONS AND UNABLE TO GIVE THEM INFORMATION DUE TO HER CONDITION.
[2016-12-04] MEDS ORDERED: ONDANSETRON 4 MG/2 ML VIAL IV ONE (20:15)
[2016-12-04] MEDS ORDERED: IV NORMAL SALINE 1000 ML BAG IV ONE (20:15)
[2016-12-04 20:46] LABS: BASOPHILS # (AUTO) 0.1 K/uL (0.0-0.2); BASOPHILS % (AUTO) 2.2 % (0.0-2.0); EOSINOPHILS # (AUTO) 0.1 K/uL (0.0-0.7); EOSINOPHILS % (AUTO) 1.9 % (0.0-7.0); HEMATOCRIT 44.1 % (37.0-47.0); HEMOGLOBIN 14.5 g/dL (12.0-16.0); LYMPHOCYTES # (AUTO) 1.4 K/uL (0.8-4.8); LYMPHOCYTES % (AUTO) 31.9 % (20.5-51.5); MEAN CORPUSCULAR HEMOGLOBIN 31.4 uug (27.0-31.0); MEAN CORPUSCULAR HGB CONC 33 g/dL (32.0-37.0); MEAN CORPUSCULAR VOLUME 95.7 fL (81.0-99.0); MONOCYTES # (AUTO) 0.2 K/uL (0.1-1.30); MONOCYTES % (AUTO) 3.8 % (0.0-11.0); NEUTROPHILS # (AUTO) 2.6 K/uL (1.8-8.9); NEUTROPHILS % (AUTO) 60.2 % (38.5-71.5); PLATELET COUNT (AUTO) 168 K/uL (150-450); RED BLOOD CELL COUNT(AUTO) 4.61 MIL/uL (4.20-5.40); RED CELL DISTRIBUTION WIDTH 13.4 % (11.5-14.5); WHITE BLOOD COUNT (AUTO) 4.4 K/uL (4.0-11.2)
[2016-12-04 20:49] LABS: CALCIUM 8.6 mg/dL (8.5-10.1); CARBON DIOXIDE 31 mmol/L (21-32); CHLORIDE 105 mmol/L (98-107); CREATININE 0.7 mg/dL (0.6-1.3); GFR 92 mL/min (>60); GLUCOSE 98 mg/dL (74-106); POTASSIUM 4.5 mmol/L (3.5-5.1); SODIUM SERUM 144 mmol/L (136-145); UREA NITROGEN, BLOOD 6 mg/dL (7-18)
[2016-12-04 20:54] LABS: ETHANOL 444 MG/DL (0-0)
[2016-12-04 21:00] LABS: ALANINE AMINOTRANSFERASE 97 U/L (14-59); ALBUMIN 3.9 g/dL (3.4-5.0); ALKALINE PHOSPHATASE 65 U/L (50-136); ASPARTATE AMINOTRANSFERASE 165 U/L (15-37); BILIRUBIN,DIRECT 0.1 mg/dL (0.0-0.2); BILIRUBIN,TOTAL 0.4 mg/dL (0.2-1.0); TOTAL PROTEIN, SERUM 7.2 g/dL (6.4-8.2)
[2016-12-04 21:03] LABS: ACETAMINOPHEN < 2.0 ug/mL (10-30)
--- NOTE | 2016-12-04 22:23 | NUR ---
Spoke with [facility] Staff, will evaluate patient in approximately 30 min.
--- NOTE | 2016-12-04 23:13 | NUR ---
[facility] staff arrived, interviewed patient, and assumed care for her. Verbal aftercare instructions given.
== END 2016-12-04 23:15 | disposition home or self-care (01) ==
LOC: ER 19:04
DX: F10.129 Alcohol abuse with intoxication, unspecified (principal); F41.9 Anxiety disorder, unspecified; F17.200 Nicotine dependence, unspecified, uncomplicated; Z88.0 Allergy status to penicillin; Z91.010 Allergy to peanuts
CPT/HCPCS: 84703; 85025; A4663; G0480-TC; G6040-TC; J2405; J7030

== ENCOUNTER 2017-06-15 19:10 | Inpatient (IN) | payer OTHER ==
[~2017-06-15] VITALS: Ht 167.6 cm; Wt 49.9 kg
[~2017-06-15 19:10] MED LIST: Baclofen PO; CLON0.1T14 PO; DICY20TA28 PO; Gabapentin PO; HYDR-3895 PO; PANT40TA2 PO; SUMA50TA PO; TRAZ-144 PO
--- NOTE | 2017-06-15 22:20 | NUR ---
PRE-ADMISSION NOTE Pt is a 42-year-old female, seen at intake, alert and oriented x4, with no SOB and mild anxiety noted at this time. Discussed with patient the admission policies of the unit. Patient is coherent and able to respond to questions appropriately. Pt is ambulatory with steady gait. Vital signs taken and as follows: BP: 91/62, P: 85, R: 16, O2: 98%, T: 97.6 F, Pain: 6/10 (lower back pain). Pt verbalized understanding of instructions and teachings regarding disposal of narcotic and other controlled home medications, unit protocols such as taking of vital signs Q4H and handling and disposal of contraband. Will continue with admission upon patients arrival to the unit.
[2017-06-15 22:41] VITALS: BP 91/62
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
[2017-06-15] MEDS ORDERED: diphenhydrAMINE 50 MG CAPSULE PO PRN (22:45)
[2017-06-15] MEDS ORDERED: MAGNESIUM HYDROXIDE 30 ML LIQUID UDC PO PRN (22:45)
[2017-06-15] MEDS ORDERED: LORAZEPAM 2 MG/1 ML VIAL IM PRN (22:45)
[2017-06-15] MEDS ORDERED: DICYCLOMINE HCL 20 MG TABLET PO PRN (22:45)
[2017-06-15] MEDS ORDERED: THIAMINE HCL 200 MG/2 ML VIAL IM ONE (22:45)
[2017-06-15] MEDS ORDERED: ACETAMINOPHEN 325 MG TABLET PO PRN (22:45)
[2017-06-15] MEDS ORDERED: MAG HYDROX/AL HYDROX/SIMETH 30 ML LIQUID UDC PO PRN (22:45)
[2017-06-15] MEDS ORDERED: LORAZEPAM 1 MG TABLET PO PRN (22:45)
[2017-06-15] MEDS ORDERED: CLONIDINE HCL 0.1 MG TABLET PO PRN (22:45)
[2017-06-15] MEDS ORDERED: MIRALAX 17 GM POWD.PACK PO PRN (22:45)
[2017-06-15] MEDS ORDERED: LOPERAMIDE HCL 2 MG CAPSULE PO PRN ×2 (22:45)
[2017-06-15] MEDS ORDERED: ONDANSETRON 4 MG/2 ML VIAL IM PRN (22:45)
--- NOTE | 2017-06-15 22:45 | NUR ---
LABS RESULTS SHOW POSITIVE FOR [facility] Labs reviewed. Patient denied using any PO benzodiazepines. According to patient's H&P from most recent hospitalization ([facility]; see patient chart), patient received IV valium which accounts for positive result.
[2017-06-15] MEDS ORDERED: LORAZEPAM 1 MG TABLET ONE (23:58)
[2017-06-16 00:01] VITALS: BP 107/75
[2017-06-16 00:11] LABS: *URINE HCG, QUAL NEGATIVE (NEGATIVE)
[2017-06-16 00:19] LABS: *AMPHETAMINE, URINE NEGATIVE (NEGATIVE); *BARBITURATE, URINE NEGATIVE (NEGATIVE); *CANNABINOID, URINE NEGATIVE (NEGATIVE); *COCCAINE, URINE NEGATIVE (NEGATIVE); *OPIATE, URINE NEGATIVE (NEGATIVE); *PHENCYCLIDINE SCREEN,URINE NEGATIVE (NEGATIVE)
[2017-06-16] MEDS: ONDANSETRON ODT 4 MG TAB.RAPDIS SL PRN ×3 (00:25→15:38)
[2017-06-16] MEDS: LORAZEPAM 1 MG TABLET PO PRN ×2 (00:26→08:19)
--- NOTE | 2017-06-16 00:26 | NUR ---
PRN ATIVAN AND ZOFRAN Patient reports anxiety, agitation, shakiness, nausea, restlessness, fine tremors visible, skin clammy with reports of mild chills. CIWA 10. Ativan 1mg PRN adminitstered with Zofran 4 mg ODT PRN. Safety precautions in place, will continue to monitor.
[2017-06-16] MEDS ORDERED: ONDANSETRON ODT 4 MG TAB.RAPDIS ONE (00:34)
[2017-06-16 00:51] LABS: BASOPHILS % (AUTO) 0.3 % (0.0-2.0); EOSINOPHILS % (AUTO) 0.4 % (0.0-7.0); HEMATOCRIT 42.2 % (37-47); HEMOGLOBIN 14.3 G/DL (12.0-16.0); LYMPHOCYTES # (AUTO) 0.7 K/UL (0.8-4.8); LYMPHOCYTES % (AUTO) 9.5 % (20.5-51.5); MEAN CORPUSCULAR HEMOGLOBIN 31.7 UUG (27.0-31.0); MEAN CORPUSCULAR HGB CONC 34 g/dL (32.0-37.0); MEAN CORPUSCULAR VOLUME 93.4 FL (81.0-99.0); MONOCYTES # (AUTO) 0.2 K/UL (0.1-1.30); MONOCYTES % (AUTO) 2.5 % (0.0-11.0); NEUTROPHILS # (AUTO) 6.2 K/UL (1.8-8.9); NEUTROPHILS % (AUTO) 87.3 % (38.5-71.5); PLATELET COUNT (AUTO) 203 K/UL (150-450); RED BLOOD CELL COUNT(AUTO) 4.52 MIL/UL (4.2-5.4); WHITE BLOOD COUNT (AUTO) 7.1 K/UL (4.0-11.2)
[2017-06-16 01:13] LABS: BILIRUBIN,TOTAL 0.3 mg/dL (0.2-1.0); CREATININE 0.8 mg/dL (0.6-1.3); MAGNESIUM 1.9 mg/dL (1.8-2.4); POTASSIUM 3.9 mmol/L (3.5-5.1); TOTAL PROTEIN, SERUM 7.4 g/dL (6.4-8.2)
--- NOTE | 2017-06-16 01:26 | NUR ---
PRN REASSESSMENT CIWA 8. PRN Zofran effective, patient denies nausea. Patient is in bed ready to sleep, needs met. Safety precautions in place, will continue to monitor.
[2017-06-16 01:29] LABS: THYROID STIMULATING HORMONE 1.693 mIU/mL (0.358-3.740)
[2017-06-16 04:00] VITALS: BP 87/57
--- NOTE | 2017-06-16 04:00 | NUR ---
CIWA DEFERRED CIWA deferred, patient is asleep, unable to score. To assess while patient is awake as ordered. Safety measures in place, will continue to monitor.
[2017-06-16] MEDS ORDERED: TRAZ-147 PO (04:08)
[2017-06-16] MEDS ORDERED: DISU250T7 PO (04:08)
[2017-06-16] MEDS ORDERED: HYDR15CR41 TP (04:20)
[2017-06-16] MEDS ORDERED: LOPE1TAB46 PO (04:20)
[2017-06-16] MEDS ORDERED: [UNRECOGNIZED DRUG - OTHER] (04:20)
[2017-06-16] MEDS ORDERED: NEOM14.216 TP (04:20)
[2017-06-16] MEDS ORDERED: TERB12GE TP (04:20)
[2017-06-16] MEDS ORDERED: [UNRECOGNIZED DRUG - CODE] PO (04:20)
[2017-06-16] MEDS ORDERED: HYDR-3974 PO (04:20)
[2017-06-16] MEDS ORDERED: MICO45CR12 VG (04:20)
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
[2017-06-16 08:00] VITALS: BP 120/79
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
[2017-06-16] MEDS: IBUPROFEN 400 MG TABLET PO PRN (08:19)
[2017-06-16] MEDS: MULTIVITAMINS,THERAPEUTIC TABLET PO SCH (08:19)
[2017-06-16] MEDS: FOLIC ACID 1 MG TABLET PO SCH (08:19)
--- NOTE | 2017-06-16 08:20 | NUR ---
PRN MOTRIN/ATIVAN/ZOFRAN Pt c/o of nausea, body aches 4/10, anxiety, agitation, chills, tremors,sweats, CIWA score noted 10, Pt provided with non pharmacological intervention with no relief. Administered PRN Motrin 400mg 1 tab PO, Ativan 1mg 1 tab Po, Zofran 4mg SL, as ordered. Will cont to monitor and reassess.
--- NOTE | 2017-06-16 08:45 | NUR ---
ZOFRAN REASSESSMENT Pt reported medication effective, nausea improved.
[2017-06-16] MEDS ORDERED: TUBERCULIN,PURIF.PROT.DERIV. 5 TU/0.1 ML TEST ID ONE (09:00)
--- NOTE | 2017-06-16 09:20 | NUR ---
ATIVAN/MOTRIN REASSESSMENT Pt reported pain subside to 1/10, and Ativan was effective in alleviating her withdrawal symptoms with CIWA score noted 5. All safety measures on place.
[2017-06-16] MEDS: THIAMINE HCL 100 MG TABLET PO SCH (09:39)
--- NOTE | 2017-06-16 11:05 | NUR ---
PRN ATIVAN Pt noted pacing in the hallway very anxious, and agitated, pt also reported chills, noted with tremors, sweats, CIWA score noted 17, Pt provided with non pharmacological intervention with no relief. Administered PRN Ativan 2mg 2 tabs Po, as ordered. Will cont to monitor and reassess.
[2017-06-16] MEDS ORDERED: LORAZEPAM 1 MG TABLET PO PRN ×2 (11:45)
[2017-06-16] MEDS ORDERED: Medication Not On Formulary EA ([Gabapentin] (Neurontin) 600 MG) PO SCH (11:45)
[2017-06-16] MEDS ORDERED: SUMATRIPTAN SUCCINATE 50 MG TABLET PO PRN (11:45)
[2017-06-16] MEDS ORDERED: GABAPENTIN 300 MG CAPSULE PO SCH (11:54)
[2017-06-16 12:00] VITALS: BP 114/80
--- NOTE | 2017-06-16 12:05 | NUR ---
ATIVAN REASSESSMENT Per pt PRN Ativan was effective in reducing pt's withdrawal symptoms. CIWA score noted 5.
--- NOTE | 2017-06-16 13:04 | NUR ---
CLARIFICATION OF ORDER Order clarification obtained from Dr. Duke changed Gabapentin 600mg from 1154 PM to 1500 PM.
[2017-06-16] MEDS: LORAZEPAM 1 MG TABLET PO SCH ×2 (15:31→19:46)
[2017-06-16] MEDS: GABAPENTIN 300 MG CAPSULE PO SCH ×2 (15:31→22:04)
--- NOTE | 2017-06-16 15:38 | NUR ---
PRN ZOFRAN Pt c/o of nausea and reported x1 emesis, Pt provided with non pharmacological intervention with no relief. Administered PRN Zofran 4mg SL, as ordered. Will cont to monitor and reassess.
--- NOTE | 2017-06-16 15:52 | NUR ---
CARE ENDORSED All pertinent information given and care endorsed to nurse in charge.
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
[2017-06-16 17:15] VITALS: BP 124/77
--- NOTE | 2017-06-16 17:15 | NUR ---
CIWA 23 1700, pt not in room, requested DIMENSIONAL ENGINEER bring patient up to room. Pt up in room at 1715. CIWA 23. Pt had emesis. Dr. Duke notified. Ativan 2 mg IM and Zofran 4 mg IM given.
[2017-06-16] MEDS ORDERED: LORAZEPAM 2 MG/1 ML VIAL IM ONE (17:45)
--- NOTE | 2017-06-16 18:28 | NUR ---
CIWA 18 1827, CIWA 18. Dr. Duke notified. Per , RN to assess CIWA q 30 min x 2, if CIWA not less than 15 in one hour call . No further emesis. Pt able to eat half of dinner after PRN Zofran.
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
[2017-06-16 20:00] VITALS: BP 129/70
[2017-06-16] MEDS: TRAZODONE 100 MG TABLET PO SCH (22:00)
[2017-06-17] VITALS: BP 126/77
[2017-06-17] MEDS: LORAZEPAM 1 MG TABLET PO SCH ×4 (00:01→21:20)
[2017-06-17] MEDS ORDERED: LORAZEPAM 1 MG TABLET PO PRN ×2 (00:30)
[2017-06-17 04:00] VITALS: BP 126/83
--- NOTE | 2017-06-17 04:00 | NUR ---
Vital Signs BP 126/83, pulse 62, resp 16, SpO2 100% room air, temp 98.1, no pain CIWA deferred due to pt sleeping, to assess while pt is awake as ordered. Safety measures in place. Will continue to monitor.
[2017-06-17] MEDS: PANTOPRAZOLE SODIUM 40 MG TABLET.DR PO SCH (06:49)
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
[2017-06-17 08:00] VITALS: BP 140/80
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
[2017-06-17] MEDS: MULTIVITAMINS,THERAPEUTIC TABLET PO SCH (09:09)
[2017-06-17] MEDS: FOLIC ACID 1 MG TABLET PO SCH (09:09)
[2017-06-17] MEDS: GABAPENTIN 300 MG CAPSULE PO SCH ×3 (09:10→21:19)
[2017-06-17] MEDS: THIAMINE HCL 100 MG TABLET PO SCH (09:42)
[2017-06-17 10:09] LABS: HEPATITIS B SURFACE AG Negative (Negative)
[2017-06-17 12:00] VITALS: BP 125/86
[2017-06-17] MEDS ORDERED: LORAZEPAM 1 MG TABLET PO ONE (12:15)
--- NOTE | 2017-06-17 12:35 | NUR ---
ATIVAN X1 DOSE Pt c/o anxiety, agitation, Pt was sen by Dr. Reza with new x1 dose to administer Ativan 2mg Po. Medication was administered as ordered. Will cont to monitor and reassess.
--- NOTE | 2017-06-17 13:35 | NUR ---
ATIVAN REASSESSMENT Per pt Ativan was effective in alleviating feeling of anxiety and agitation.
--- NOTE | 2017-06-17 14:09 | NUR ---
BACLOFEN REASSESSMENT Per pt Baclofen was effective in alleviating muscle cramps. Addendum: 06/17/17 at 1908 by MELINDA SCHULZ LVN correct time for reassessment- [id number]
--- NOTE | 2017-06-17 14:37 | NUR ---
THerapist went to client's room and encouraged client to attend group today. Client reported that she was seeing the doctor, therapist informed client that there are two groups available today. Client agreed to attempt to make it to group.
[2017-06-17] MEDS: BACLOFEN 20 MG TABLET PO PRN ×2 (15:09→21:20)
--- NOTE | 2017-06-17 15:09 | NUR ---
PRN BACLOFEN Pt c/o of muscle aches, Pt was medicated with PRN Baclofen as ordered. Will cont to monitor and reassess.
[2017-06-17 16:00] VITALS: BP 126/84
--- NOTE | 2017-06-17 19:02 | NUR ---
END OF SHIFT NOTE Pt cont on 5 days Ativan taper. Pt was given PRN Baclofen during shift noted to be effective, pt received x1 dose of Ativan 2mg Po during shift. Pt compliant with medication and plan of care. Pt attend group and activity. Encouraged Po fluids as ordered. Pt's last CIWA-5, at 1600. Vital signs WNL. All needs met. Safety measures in place, call light within reach. Pt endorsed to night nurse in stable condition.
--- NOTE | 2017-06-17 19:38 | NUR ---
START OF SHIFT NOTE Pt is a 42-year-old female admitted for ETOH dependence. Patients past medical history includes anxiety, PFO, migraines, abnormal spotting since December, OA of left foot, and history of back break T11 and T12, tailbone fractures x3, rib fractures x3. Allergic to PCN,peanuts and intolerance to lactose.On full code status and Vegan diet. Last CIWA was 5. Patient received A/A/O X 4,no c/o pain or s/s of acute distress noted.All safety measures in place,call light kept with in reach, will continue to monitor.
[2017-06-17 20:00] VITALS: BP 130/87
[2017-06-17] MEDS: TRAZODONE 100 MG TABLET PO SCH (21:00)
[2017-06-17] MEDS: ONDANSETRON ODT 4 MG TAB.RAPDIS SL PRN (21:18)
--- NOTE | 2017-06-17 21:18 | NUR ---
PRN ZOFRAN GIVEN ORDERED FOR C/O N/V X 1.WILL MONITOR.
--- NOTE | 2017-06-17 21:23 | NUR ---
PRN MED PRN MED BACLOFEN GIVEN ORDERED FOR C/O MUSCLE CRAMPS.WILL MONITOR.
--- NOTE | 2017-06-17 22:13 | NUR ---
PRN F/U PRN ZOFRAN AND BACLOFEN ARE EFFECTIVE.N/V CEASED.MUSCLE SPASM RELIEVED.
[2017-06-18] VITALS: BP 121/80
[2017-06-18 04:00] VITALS: BP 126/80
--- NOTE | 2017-06-18 04:00 | NUR ---
DARIEL DEFERRED D/T PT BEING ASLEEP.
[2017-06-18] MEDS: ONDANSETRON ODT 4 MG TAB.RAPDIS SL PRN (05:42)
--- NOTE | 2017-06-18 05:46 | NUR ---
PRN ZOFRAN ODT GIVEN ORDERED FOR C/O NAUSEA AND VOMITING X 1.WILL MONITOR FOR EFFECTIVENESS.
--- NOTE | 2017-06-18 06:16 | NUR ---
PRN ZOFRAN IS EFFECTIVE.N/V CEASED.
--- NOTE | 2017-06-18 06:44 | NUR ---
END OF SHIFT Pt is a 42-year-old female admitted for ETOH dependence. Patients past medical history includes anxiety, PFO, migraines, abnormal spotting since December, OA of left foot, and history of back break T11 and T12, tailbone fractures x3, rib fractures x3. Allergic to PCN,peanuts and intolerance to lactose.On full code status and Vegan diet. Last CIWA was 2. Patient is A/A/O X 4.PRN Baclofen and Zofran x 2 given for N/V and were effective.Pt refused Trazodone last night; slept 7 hrs,fluid intake was 2010 mls,voided x 6.All safety measures in place,call light kept with in reach, will continue to monitor.
[2017-06-18] MEDS: PANTOPRAZOLE SODIUM 40 MG TABLET.DR PO SCH (06:52)
--- NOTE | 2017-06-18 07:59 | NUR ---
START OF SHIFT NOTE Received report from night nurse, 42-year-old female, admitted last night for ETOH dependence. Patients past medical history includes anxiety, PFO, migraines, abnormal spotting since December, OA of left foot, and history of back break T11 and T12, tailbone fractures x3, rib fractures x3. Per endorsement pt received PRN Baclofen, Zofran effective per night nurse, last CIWA was 2, slept for 7 hours. Patient received awake, alert and oriented x4, educated regarding plan of care for the day and medication regimen with good verbal understanding. Safety measures in place. call light kept with in reach, will continue to monitor.
[2017-06-18 08:00] VITALS: BP 128/86
[2017-06-18] MEDS: FOLIC ACID 1 MG TABLET PO SCH (08:08)
[2017-06-18] MEDS: THIAMINE HCL 100 MG TABLET PO SCH (08:08)
[2017-06-18] MEDS: GABAPENTIN 300 MG CAPSULE PO SCH ×3 (08:08→21:18)
[2017-06-18] MEDS: MULTIVITAMINS,THERAPEUTIC TABLET PO SCH (08:08)
[2017-06-18] MEDS: LORAZEPAM 1 MG TABLET PO SCH ×3 (08:08→16:33)
[2017-06-18] MEDS: BACLOFEN 20 MG TABLET PO PRN ×2 (08:08→16:40)
--- NOTE | 2017-06-18 08:08 | NUR ---
PRN BACLOFEN Pt was c/o of muscle cramps, PRN Baclofen was administered as ordered. Will cont to monitor and reassess.
--- NOTE | 2017-06-18 09:08 | NUR ---
BACLOFEN REASSESSMENT Per pt baclofen was effective in alleviating her muscle cramps.
[2017-06-18 12:00] VITALS: BP 129/82
[2017-06-18] MEDS ORDERED: DOCUSATE SODIUM 250 MG CAPSULE PO PRN (14:15)
[2017-06-18 16:00] VITALS: BP 102/72
--- NOTE | 2017-06-18 16:40 | NUR ---
PRN BACLOFEN/MIRALAX Pt was c/o of muscle cramps, and constipation, PRN Baclofen 20 mg Po/ Miralax was given as ordered. Will cont to monitor and reassess.
[2017-06-18] MEDS ORDERED: LORAZEPAM 1 MG TABLET PO SCH ×2 (17:00→21:00)
--- NOTE | 2017-06-18 17:40 | NUR ---
BACLOFEN/MIRALAX REASSESSMENT Per pt baclofen was effective muscle cramps subside, and Miralax was ineffective. Will cont to encourage fluids as tolerated and cont to monitor.
--- NOTE | 2017-06-18 19:10 | NUR ---
END OF SHIFT NOTE Pt cont on 5 days Ativan taper. Pt received PRN x2 dose of Baclofen, Miralax for constipation. Pt compliant with medication and plan of care. Pt attend group and activity. Encouraged Po fluids as ordered. Pt's last CIWA-4, at 1600. Vital signs WNL. Pt reported Miralax effective constipation resolved. All needs met. Safety measures in place, call light within reach. Pt endorsed to night nurse in stable condition.
--- NOTE | 2017-06-18 19:15 | NUR ---
START OF SHIFT NOTE : Pt. is 42 year old female, admitted for ETOH dependence on 06/15/2017. Patients past medical history includes anxiety, PFO, migraines, abnormal spotting since December, OA of left foot, and history of back break T11 and T12, tailbone fractures x3, rib fractures x3. Pt. is at the meeting , alert and oriented x4. Pt. complains of increased level of anxiety, anhedonia, mild body ache. Safety measures in place. call light kept with in reach, will continue to monitor.
[2017-06-18 20:00] VITALS: BP 105/60
[2017-06-18] MEDS: TRAZODONE 100 MG TABLET PO SCH (21:18)
--- NOTE | 2017-06-19 04:40 | NUR ---
PRN MOTRIN Pt c/o of LB pain 02/16. Pt provided with non pharmacological intervention with no relief. Administered PRN Motrin 400mg 1 tab PO as ordered. Safety measures in place : bed on lowest position with side rails x2 up for safety, call light within reach. Will continue to monitor closely and offer help.
[2017-06-19] MEDS: IBUPROFEN 400 MG TABLET PO PRN (05:03)
--- NOTE | 2017-06-19 05:13 | NUR ---
RE-ASSESSMENT VENTURA Pt reported pain subside to 2/10, pt. smoked and is resting in the bed right now. Safety measures in place : bed on lowest position with side rails x2 up for safety, call light within reach. Will continue to monitor closely and offer help.
--- NOTE | 2017-06-19 06:50 | NUR ---
END OF SHIFT NOTE : Pt. is 42 year old female, admitted for ETOH dependence on 06/15/2017. Patients past medical history includes anxiety, PFO, migraines, abnormal spotting since December, OA of left foot, and history of back break T11 and T12, tailbone fractures x3, rib fractures x3. Pt remains compliant with the treatment plan. PRN Motrin was given because of LB pain (02/16) during my shift. V/S remain WNL. Pt. was incontinent x1 in the night, all linen changed. RR=16, even and unlabored, lungs clear upon auscultation, abdomen soft and non- distended. Pt denies nausea, vomiting and diarrhea. CIWA taken when pt. was alert during the night, LAST CIWA=4 at 0400 , INTAKE= 1000 ml, voided x4 , slept 5 hours. Safety measures in place : bed on lowest position with side rails x2 up for safety, call light within reach. Will continue to monitor closely and offer help.
[2017-06-19] MEDS: PANTOPRAZOLE SODIUM 40 MG TABLET.DR PO SCH (06:57)
--- NOTE | 2017-06-19 07:54 | NUR ---
START OF SHIFT NOTE Received report from night nurse, 42-year-old female, admitted last night for ETOH dependence. Patients past medical history includes anxiety, PFO, migraines, abnormal spotting since December, OA of left foot, and history of back break T11 and T12, tailbone fractures x3, rib fractures x3. Per endorsement pt received PRN Motrin effective per night nurse, last CIWA was 4, slept for 5 hours. Patient received awake, alert and oriented x4, educated regarding plan of care for the day and medication regimen with good verbal understanding. Safety measures in place. call light kept with in reach, will continue to monitor.
[2017-06-19 08:00] VITALS: BP 121/73
[2017-06-19] MEDS: LORAZEPAM 1 MG TABLET PO SCH ×3 (08:44→20:39)
[2017-06-19] MEDS: THIAMINE HCL 100 MG TABLET PO SCH (08:44)
[2017-06-19] MEDS: MULTIVITAMINS,THERAPEUTIC TABLET PO SCH (08:44)
[2017-06-19] MEDS: GABAPENTIN 300 MG CAPSULE PO SCH ×3 (08:44→20:39)
[2017-06-19] MEDS: FOLIC ACID 1 MG TABLET PO SCH (08:45)
[2017-06-19] MEDS: BACLOFEN 20 MG TABLET PO PRN ×2 (08:50→20:47)
--- NOTE | 2017-06-19 08:50 | NUR ---
PRN BACLOFEN Pt was c/o of muscle cramps, PRN Baclofen 20mg Po was administered as ordered. Will cont to monitor and reassess.
--- NOTE | 2017-06-19 09:00 | NUR ---
NURSING NOTES Scheduled Ativan 1mg dose was already given at 1633 on 06/18/17 .
--- NOTE | 2017-06-19 09:50 | NUR ---
BACLOFEN REASSESSMENT Per pt baclofen was effective in alleviating her muscle cramps.
[2017-06-19 12:00] VITALS: BP 126/83
[2017-06-19 16:00] VITALS: BP 139/82
--- NOTE | 2017-06-19 19:05 | NUR ---
END OF SHIFT NOTE Pt cont on 5 days Ativan taper. Pt received PRN x1 dose of Baclofen noted to be effective. Pt compliant with medication and plan of care. Pt attend group and activity. Encouraged Po fluids as ordered. Pt's last CIWA-3, at 1600. Vital signs WNL. All needs met. Safety measures in place, call light within reach. Pt endorsed to night nurse in stable condition.
--- NOTE | 2017-06-19 19:05 | NUR ---
START OF SHIFT NOTE: Patient is a 42 year old female admitted to [facility] on 06/15/2017 for Alcohol dependence, continue 5 Day Ativan Taper. Patient tolerated well without ASE. Patient remains compliant with treatment plan, medications, and diet regime. Patient reports Allergy to PCN, Lactose intolerant, and peanuts. Patient is on Vegan Diet, Full Code, Fall and Seizures precautions. PMH: Anxiety, Depression, Abnormal spotting since December,, History of Bulimia, History of "back break: T11-T12, History of Tailbone fracture x3, and rib fracture x3, PFO, Migraines r/t stress and fatigue, induce left sided hemiparesis, OA of left foot. Patient denies history of seizures. Patient reports Substance use: 1. "Vodka 1 bottle - 750 ml every 3-4 day. Intermittent binge drinking last two months. Last used "2 shots" 06/15/2017". 2. " Beer 2-5 bottles every 3-4 days for last 2 months. Last used " several bottles over the weekend: 06/07/2017-06/09/2017". Patient reports hospitalization twice during week of 06/09/2017-06/15/2017 in [facility]. VS WNL during the day per day shift nurse report. Last CIWA 3 at 1600. Patient attending activities groups therapies. Upon endorsement patient is on her room alert and oriented x4. Speech is clear and soft. Patient is cooperative. Respirations is unlabored and even. Patient denies SOB and chest pain. Lungs Sounds are clear. Patient denies cough. Abdomen is soft and non-tender. Skin is intact, warm and dry to touch. Encouraged fluids intact as tolerated. All needs met. Safety measures in place: call light within reach, bed in low position, and locked, padded bed rails up bilaterally. Patient endorsed by outgoing day shift nurse. Report received. Will continue to monitor closely.
[2017-06-19 20:00] VITALS: BP 116/86
[2017-06-19] MEDS: TRAZODONE 100 MG TABLET PO SCH ×2 (20:39→20:44)
--- NOTE | 2017-06-19 20:39 | NUR ---
TRAZODONE REFUSED Patient refused scheduled for 2100 Trazodone. All needs met. Safety measures on place. Call light within reach, bed in lowest position and locked, padded rails up bilaterally rails up bilaterally. Will continue to monitor closely
--- NOTE | 2017-06-19 20:47 | NUR ---
PRN BACLOFEN 20 MG 1 TAB PO ADMINISTRATION Patient c/o muscle spasm. PRN Baclofen 20 mg 1 tab PO administrated with full glass of water as ordered. Patient tolerated well. All needs met. Safety measures on place. Call light within reach, bed in lowest position and locked, padded rails up bilaterally rails up bilaterally. Patient endorsed by day shift nurse. Report received. Will continue to monitor closely
--- NOTE | 2017-06-19 21:47 | NUR ---
RE-ASSESSMENT Patient is sleeping. Respirations even and unlabored. RR - 14. PRN Baclofen 20 mg 1 tab PO was effective. All needs met. Safety measures on place. Call light within reach, bed in lowest position and locked, padded rails up bilaterally rails up bilaterally. Will continue to monitor closely.
[2017-06-20] VITALS: BP 106/67
[2017-06-20 04:00] VITALS: BP 131/84
[2017-06-20] MEDS: PANTOPRAZOLE SODIUM 40 MG TABLET.DR PO SCH (06:15)
--- NOTE | 2017-06-20 07:03 | NUR ---
END OF SHIFT NOTE: Patient is a 42 year old female admitted to [facility] on 06/15/2017 for Alcohol dependence, continue 5 Day Ativan Taper. Patient tolerated well without ASE. Patient remains compliant with treatment plan, medications, and diet regime. Patient reports Allergy to PCN, Lactose intolerant, and peanuts. Patient is on Vegan Diet, Full Code, Fall and Seizures precautions. Patient denies a history of withdrawal-induced seizures. Last CIWA 5 @0400. CIWA taken when patient's alert during the night. 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 Last VS @0400: T: 98.2; BP: 131/84; HR:60; RR:18; RA O2 SAT: 98%. Pain level: "0/10". Patient denies SI/HI. Respirations unlabored and even. Abdomen is soft and non-tender. Skin is intact, warm and dry to touch. PRN Baclofen 20 mg 1 tab PO for muscles spasms administrated @7 was effective. Patient slept 6 hours, intake 796 ml, voided x2. Encouraged fluids as tolerated. Encouraged to attend groups activities. All needs met. Safety measures on place. Call light within reach, bed in lowest position and locked, padded rails up bilaterally. Patient endorsed to day shift nurse.
--- NOTE | 2017-06-20 07:04 | NUR ---
Start of Shift notes: Received patient in his room. Alert and verbally responsive. Oriented x 4. Able to make her needs known. Respirations even and unlabored. No SOB noted. Skin warm and dry to touch. Abdomen soft and non-distended. BS (+) in all 4 quadrants. No complains of N/V/D or constipation noted. Bladder non-distended. Voids independently. Ambulatory ad allan with steady gait. Patient is a 42 year old female admitted for ETOH dependence who was placed on a 5-day Ativan taper as ordered. No adverse reactions. Prior to admission, patient was using 750ml of Vodka, and 2-5 bottles of beer daily. Allergies to PCN and peanutes. FULL CODE. Regular diet. On fall and seizure precautions. Educated patient on his current plan of care for the day and his medication regimen. Encouraged oral fluid intake and encouraged group participation to learn new skills to prevent relapse. Will continue to monitor.
[2017-06-20 08:00] VITALS: BP 106/87
[2017-06-20] MEDS: LORAZEPAM 1 MG TABLET PO SCH ×2 (08:16→21:12)
[2017-06-20] MEDS: FOLIC ACID 1 MG TABLET PO SCH (08:16)
[2017-06-20] MEDS: THIAMINE HCL 100 MG TABLET PO SCH (08:16)
[2017-06-20] MEDS: GABAPENTIN 300 MG CAPSULE PO SCH ×3 (08:17→21:11)
[2017-06-20] MEDS: MULTIVITAMINS,THERAPEUTIC TABLET PO SCH (08:17)
[2017-06-20] MEDS: BACLOFEN 20 MG TABLET PO PRN (08:17)
--- NOTE | 2017-06-20 08:17 | NUR ---
Baclofen 20 mg PO given: Patient noted with complain of muscle spasms to her lower back. Non-pharmacological interventions provided but ineffective. Medicated patient with Baclofen 20 mg PO. Will monitor for effectiveness.
--- NOTE | 2017-06-20 09:17 | NUR ---
Re-assessment: Baclofen Per patient, PRN Baclofen was mildly effective in reducing low back spasms. PL 10/19.
[2017-06-20 12:00] VITALS: BP 121/80
[2017-06-20] MEDS: HYDROXYZINE PAMOATE 25 MG CAPSULE PO PRN (14:18)
--- NOTE | 2017-06-20 14:18 | NUR ---
Vistaril 50 mg PO given: Patient verbalized feeling anxious due to discharge location. Redirected with no help. Medicated patient with Vistaril 50 mg PO as ordered. Will monitor for effectiveness.
--- NOTE | 2017-06-20 15:18 | NUR ---
Re-assessment: Per patient, PRN Vistaril was effective in reducing anxiety.
[2017-06-20 16:00] VITALS: BP 121/84
--- NOTE | 2017-06-20 17:18 | NUR ---
Client was prompted by therapist to attend daily group sessions. Client stated that she would attend.
--- NOTE | 2017-06-20 19:04 | NUR ---
End of Shift Notes: Patient continues to be on 5-day Ativan taper as ordered. No adverse reactions noted. Patient is tolerating taper well. No significant abnormalities noted. Withdrawal symptoms were closely monitored. Initial CIWA 5, patient presented with anxiety, sweats and myalgia. Medicated patient with Baclofen 20 mg PO at 0817 with help after 1 hour. At 1418, patient complained of anxiety, and medicated patient with Vistaril 50 mg PO with help after 1 hour. Last CIWA 3. Per patient Ativan has been helping her with her withdrawal symptoms. Able to participate in group and activities. Compliant with care and treatment. All needs met and attended. Will continue to monitor closely.
--- NOTE | 2017-06-20 19:15 | NUR ---
START OF SHIFT NOTE : Pt. is 42 year old female, admitted for ETOH dependence on 06/15/2017. Patients past medical history includes anxiety, PFO, migraines, abnormal spotting since December, OA of left foot, and history of back break T11 and T12, tailbone fractures x3, rib fractures x3. Pt. is at the meeting , alert and oriented x4. Pt. complains of increased level of anxiety, anhedonia, mild body ache. Pt. is seen by GIOVANNI Polo, new orders will be placed (if any). All needs met. Safety measures on place. Call light within reach, bed in lowest position and locked, padded rails up bilaterally. Will continue to monitor closely.
[2017-06-20 20:00] VITALS: BP 103/69
[2017-06-20] MEDS: TRAZODONE 100 MG TABLET PO SCH (21:00)
--- NOTE | 2017-06-20 21:00 | NUR ---
REFUSED DESYREL Pt. REFUSED DESYREL in HS.
[2017-06-21 04:00] VITALS: BP 109/68
[2017-06-21] MEDS: PANTOPRAZOLE SODIUM 40 MG TABLET.DR PO SCH (06:04)
--- NOTE | 2017-06-21 07:02 | NUR ---
END OF SHIFT NOTE : Pt. is 42 year old female, admitted for ETOH dependence on 06/15/2017. Patients past medical history includes anxiety, PFO, migraines, abnormal spotting since December, OA of left foot, and history of back break T11 and T12, tailbone fractures x3, rib fractures x3. Pt remains compliant with the treatment plan. No PRNs were given during my shift. V/S remain WNL. RR=16, even and unlabored, lungs clear upon auscultation, abdomen soft and non- distended. Pt denies nausea, vomiting and diarrhea. CIWA taken when pt. was alert during the night, LAST CIWA=3 at 0400 , [id number] ml, voided x 5, slept 5 hours. Safety measures in place : bed on lowest position with side rails x2 up for safety, call light within reach. Will continue to monitor closely and offer help.
--- NOTE | 2017-06-21 07:45 | NUR ---
Start of Shift notes: Received patient in his room. Alert and verbally responsive. Oriented x 4. Able to make her needs known. Respirations even and unlabored. No SOB noted. Skin warm and dry to touch. Abdomen soft and non-distended. BS (+) in all 4 quadrants. No complains of N/V/D or constipation noted. Bladder non-distended. Voids independently. Ambulatory ad allan with steady gait. Patient is a 42 year old female admitted for ETOH dependence who was placed on a 5-day Ativan taper as ordered. No adverse reactions. Prior to admission, patient was using 750ml of Vodka, and 2-5 bottles of beer daily. Allergies to PCN and peanuts. FULL CODE. Regular diet. On fall and seizure precautions. Educated patient on his current plan of care for the day and his medication regimen. Encouraged oral fluid intake and encouraged group participation to learn new skills to prevent relapse. Will continue to monitor.
[2017-06-21 08:00] VITALS: BP 114/77
[2017-06-21] MEDS: FOLIC ACID 1 MG TABLET PO SCH (08:50)
[2017-06-21] MEDS: BACLOFEN 20 MG TABLET PO PRN ×2 (08:50→15:12)
[2017-06-21] MEDS: THIAMINE HCL 100 MG TABLET PO SCH (08:50)
[2017-06-21] MEDS: MULTIVITAMINS,THERAPEUTIC TABLET PO SCH (08:50)
[2017-06-21] MEDS: GABAPENTIN 300 MG CAPSULE PO SCH ×3 (08:50→20:42)
--- NOTE | 2017-06-21 08:50 | NUR ---
Baclofen 20 mg PO given: Patient noted with complain of muscle spasms to to her neck, PL 02/16. Non-pharmacological interventions provided but ineffective. Medicated patient with Baclofen 20 mg PO. Will monitor for effectiveness.
[2017-06-21] MEDS ORDERED: LORAZEPAM 1 MG TABLET PO SCH (09:00)
--- NOTE | 2017-06-21 09:50 | NUR ---
Re-assessment: Baclofen Per patient, PRN Baclofen was highly effective in reducing neck pain. PL 09/18.
[2017-06-21 12:00] VITALS: BP 119/81
--- NOTE | 2017-06-21 15:12 | NUR ---
PRN MEDICATION ADMINISTRATION Pt reports neck and upper back pain 8-05/19. Given Baclofen PRN. Will reassess.
[2017-06-21 16:00] VITALS: BP 102/74
--- NOTE | 2017-06-21 16:12 | NUR ---
PRN MEDICATION REASSESSMENT Pt reports decrease in neck/upper back pain to 7/10, however, also states she has chronic neck and upper back pain.
--- NOTE | 2017-06-21 19:09 | NUR ---
End of Shift Notes: Patient continues to be on 5-day Ativan taper as ordered. No adverse reactions noted. Patient is tolerating taper well. No significant abnormalities noted. Withdrawal symptoms were closely monitored. Initial CIWA 3, patient presented with anxiety, sweats and myalgia. Medicated patient with Baclofen 20 mg PO with help. Last CIWA 3. Per patient Ativan has been helping her with her withdrawal symptoms. Able to participate in group and activities. Compliant with care and treatment. All needs met and attended. Will continue to monitor closely. Addendum: 06/21/17 at 1912 by REMI VERDUGO LVN Patient completed taper today.
--- NOTE | 2017-06-21 19:30 | NUR ---
START OF SHIFT Pt is a 42 y/o female admitted on 06/15/17 for ETOH dependence. Pt was dependent on 750 ml of vodka and 2-5 bottles of beer every 3-4 days for the last 2 months. Pt is full code, allergic to penicillin and peanuts, vegan diet and lactose intolerant, and seizure/fall precautions. No reported seizure history. Pt reports PMH of anxiety, patent foramen ovale, migraines, abnormal spotting, osteoarthritis, and spinal anomalies. Pt also has hx of bulimia. Pt was on a 5 day Ativan taper that started on 06/16/17, last dose at 0850 today. Pt is scheduled to be discharged tomorrow. Upon assessment pt presented with anxiety, mild agitation, and neck/back spasms (chronic). Pt reported pain /. Respirations 18, even and unlabored. Denies N/V/D. Denies chest pain or SOB. Medications due. Safety measures in place. Call light within reach. Will continue to monitor.
[2017-06-21 20:00] VITALS: BP 106/77
[2017-06-21] MEDS ORDERED: GABA-534 PO (20:26)
[2017-06-21] MEDS ORDERED: PANT40TA2 PO (20:26)
[2017-06-21] MEDS ORDERED: HYDR-3895 PO (20:26)
[2017-06-21] MEDS ORDERED: SUMA50TA PO (20:26)
[2017-06-21] MEDS: TRAZODONE 100 MG TABLET PO SCH (20:42)
[2017-06-21] MEDS: HYDROXYZINE PAMOATE 25 MG CAPSULE PO PRN (20:42)
--- NOTE | 2017-06-21 20:42 | NUR ---
PRN VISTARIL ADMINISTRATION Pt appears anxious. Pt is walking around hallways reporting anxiety r/t her discharge tomorrow. Safety measures in place. Will continue to monitor.
--- NOTE | 2017-06-21 21:42 | NUR ---
PRN VISTARIL REASSESSMENT Pt is laying in bed with eyes closed. Respirations 18, even and unlabored. Safety measures in place. Call light within reach. Will continue to monitor.
[2017-06-22] VITALS: BP 96/58
--- NOTE | 2017-06-22 04:00 | NUR ---
VITALS REFUSED AND CIWA DEFERRED Pt is laying in bed with eyes closed. Pt refused vitals and CIWA deferred d/t pt not fully awake, to be assessed when awake per orders. Respirations 18, even and unlabored. Safety measures in place. Call light within reach. Will continue to monitor.
[2017-06-22] MEDS: PANTOPRAZOLE SODIUM 40 MG TABLET.DR PO SCH (07:07)
--- NOTE | 2017-06-22 07:13 | NUR ---
Start of Shift notes: Received patient in his room. Alert and verbally responsive. Oriented x 4. Able to make her needs known. Respirations even and unlabored. No SOB noted. Skin warm and dry to touch. Abdomen soft and non-distended. BS (+) in all 4 quadrants. No complains of N/V/D or constipation noted. Bladder non-distended. Voids independently. Ambulatory ad allan with steady gait. Patient is a 42 year old female admitted for ETOH dependence who was placed on a 5-day Ativan taper as ordered. No adverse reactions. Prior to admission, patient was using 750ml of Vodka, and 2-5 bottles of beer daily. Allergies to PCN and peanuts. FULL CODE. Regular diet. On fall and seizure precautions. Patient will be discharging today. Educated patient on the discharge process and her medication regimen. Patient verbalized good understanding. Will continue to monitor.
--- NOTE | 2017-06-22 07:22 | NUR ---
END OF SHIFT Pt is a 42 y/o female admitted on 06/15/17 for ETOH dependence. Pt was dependent on 750 ml of vodka and 2-5 bottles of beer every 3-4 days for the last 2 months. Pt is full code, allergic to penicillin and peanuts, vegan diet and lactose intolerant, and seizure/fall precautions. No reported seizure history. Pt reports PMH of anxiety, patent foramen ovale, migraines, abnormal spotting, osteoarthritis, and spinal anomalies. Pt also has hx of bulimia. Pt finished a 5 day Ativan taper on 06/21/17 at 0850, scheduled to be discharged today. Pt presented with anxiety, mild agitation, and neck/back spasms (chronic). Pt reported pain /10. Scheduled medications and PRN Vistaril administered, effective in S/S of withdrawal AEB CIWA lowered from 3 to 2 during shift and as verbalized by pt. Pt slept 6 hours. Intake 796 ml, voids x 2, stool x 0. Safety measures in place. Call light within reach. Pts needs have been met. Endorsed to day shift nurse.
[2017-06-22 08:00] VITALS: BP 116/78
--- NOTE | 2017-06-22 08:17 | NUR ---
Baclofen 20 mg PO given: Patient noted with complain of muscle spasms to to her neck, PL 8/. Non-pharmacological interventions provided but ineffective. Medicated patient with Baclofen 20 mg PO. Will monitor for effectiveness.
[2017-06-22] MEDS: THIAMINE HCL 100 MG TABLET PO SCH (08:27)
[2017-06-22] MEDS: MULTIVITAMINS,THERAPEUTIC TABLET PO SCH (08:27)
[2017-06-22] MEDS: BACLOFEN 20 MG TABLET PO PRN (08:27)
[2017-06-22] MEDS: GABAPENTIN 300 MG CAPSULE PO SCH (08:27)
[2017-06-22] MEDS: FOLIC ACID 1 MG TABLET PO SCH (08:27)
--- NOTE | 2017-06-22 09:17 | NUR ---
Re-assessment: Per patient, PRN Baclofen has been effective in reducing muscle/neck spasms. PL 2
--- NOTE | 2017-06-22 09:19 | NUR ---
Discharged: Patient left the unit at this time in stable condition. CIWA 1 due to anxiety. Escorted off the unit by T[employer]SULTANT. Discharge education provided regarding patient's discharge instructions. Patient requested for prescription Baclofen. MD Reza aware and will enter in prescription electronically. All clothings, valuables, medications were returned to the patient. Patient verbalized good understanding of all teachings. Picked up by [employer] [facility] to be transported to [facility].
[2017-06-22] MEDS ORDERED: BACL20TA PO (09:26)
== END 2017-06-22 09:19 | disposition other institution (70) | DRG 895 ==
LOC: SRC 21:31
PROVIDERS: ADMIT Internal Medicine; ATTEND Internal Medicine
PROC: HZ2ZZZZ Detoxification Services for Substance Abuse Treatment (ICD-10-PCS; principal; 2017-06-15)
PROC: HZ41ZZZ Group Counseling for Substance Abuse Treatment, Behavioral (ICD-10-PCS; 2017-06-17)
PROC: HZ31ZZZ Individual Counseling for Substance Abuse Treatment, Behavioral (ICD-10-PCS; 2017-06-18)
DX: F10.232 Alcohol dependence with withdrawal with perceptual disturbance (principal); K70.10 Alcoholic hepatitis without ascites; F50.9 Eating disorder, unspecified; F11.21 Opioid dependence, in remission; Y90.9 Presence of alcohol in blood, level not specified; G43.909 Migraine, unspecified, not intractable, without status migrainosus; Z81.1 Family history of alcohol abuse and dependence; Z81.8 Family history of other mental and behavioral disorders; F14.21 Cocaine dependence, in remission; F17.210 Nicotine dependence, cigarettes, uncomplicated; F41.1 Generalized anxiety disorder; R22.31 Localized swelling, mass and lump, right upper limb; T80.89XA Other complications following infusion, transfusion and therapeutic injection, initial encounter; M25.512 Pain in left shoulder; Z82.49 Family history of ischemic heart disease and other diseases of the circulatory system; F32.9 Major depressive disorder, single episode, unspecified
CPT/HCPCS: 36415; 70030-TC; 80307; 80346; 83690; 83735; 84443; 84703; 85025; 86580; 86592; 86705; 86803; 87340; 87806; A4663; G0480; J2060; J2405; J3411; Q0162